=== PATIENT | male | born 1980 | race Caucasian/White ===

== ENCOUNTER 2016-03-23 15:46 | Emergency (ER) | payer OTHER ==
[2016-03-23 16:12] VITALS: BP 125/73
--- NOTE | 2016-03-23 16:17 | UC ---
Back Pain HPI - HPI Summary HPI Summary: The patient comes in today for: 1. Lower back pain: Onset: He has a history of lower back pain for "years" but it got worse over the last few days. Palliative/provocative: Movement makes it worse. He states "any" kind of movement makes it worse. He has problems with getting out of a chair. Quality: Sharp and dull. Sometimes it will "grab" him. Region: Lower back, right, left and midline. Severity: 8/10 sitting, but he appears more like 4/10 Time: Constant. Associated symptoms: Event: No known precipitating event. PCP: Dr. Peres. Bowel and bladder dysfunction: None. Fevers: None Unexpected weight loss: None. Recent Rx: Ibuprofen 800 mg "last couple days taken 6 or so." Tylenol: 500 mg/pill--"I think I only took two of those." Numbness/weakness: No numbness, but he complains of weakness that is not focal--"I just can't pick anything up with my back." * - History of Current Complaint Stated Complaint: BACK PAIN Time Seen by Provider: 03/23/16 15:51 Hx Obtained From: Patient - Allergies/Home Medications Allergies/Adverse Reactions: Allergies Allergy/AdvReac Type Severity Reaction Status Date / Time No Known Allergies Allergy Verified 03/09/16 12:15 Home Medications: Home Medications FLUoxetine CAP* [Prozac CAP*] 10 mg PO DAILY 03/23/16 [History Confirmed ] traZODone TAB* [Desyrel TAB*] 50 mg PO BEDTIME 03/23/16 [History Confirmed 03/23] PMH/Surg Hx/FS Hx/Imm Hx Previously Healthy: No - Headache, allergies, Insomnia, genital herpes Endocrine History Of: Denies: Diabetes, Thyroid Disease, Hyperthyroidism, Hypothyroidism, Dyslipidemia Cardiovascular History Of: Denies: Cardiac Disorders, Hypertension, Pacemaker/ICD, Myocardial Infarction , Congestive Heart Failure, Atrial Fibrillation, Deep Vein Thrombosis, Bleeding Disorders Respiratory History Of: Denies: COPD, Asthma, Bronchitis, Pneumonia, Pulmonary Embolism GI/ History Of: Reports: Gastroesophageal Reflux Denies: Ulcer, Gastrointestinal Bleed, Gall Bladder Disease, Kidney Stones, Diverticulitis, Renal Disease, Urosepsis Neurological History Of: Denies: TIA, CVA, Dementia, Seizures, Migraine Psychological History Of: Reports: Anxiety Denies: Depression, Bipolar Disorder, Schizophrenia, Post Traumatic Stress Disorder Cancer History Of: Denies: Lung Cancer, Colorectal Cancer, Breast Cancer, Prostate Cancer, Cervical Cancer Other History Of: Negative For: HIV, Hepatitis B, Hepatitis C, Anticoagulant Therapy - Surgical History Surgical History: Yes Surgery Procedure, Year, and Place: Cholecystectomy, 05/2014, [place] - Family History Known Family History: Positive: Hypertension Negative: Cardiac Disease, Diabetes - Social History Occupation: Employed Full-time Alcohol Use: None Substance Use Type: Marijuana Substance Use Comment - Amount & Last Used: occassionally Smoking Status (MU): Former Smoker Type: Cigarettes Have You Smoked in the Last Year: No When Did the Patient Quit Smoking/Using Tobacco: 10 years ago - Immunization History Most Recent Influenza Vaccination: Not the Season Review of Systems Constitutional: Negative Skin: Negative Eyes: Negative ENT: Negative Respiratory: Negative Cardiovascular: Negative Gastrointestinal: Negative Genitourinary: Negative Musculoskeletal: Arthralgia, Myalgia All Other Systems Reviewed And Are Negative: Yes Physical Exam Triage Information Reviewed: Yes Appearance: Well-Appearing, No Pain Distress - He gets up slow from the chair and gets on the exam table slowly, and guarded, but no marked grimacing., Well- Nourished Vital Signs: Initial Vital Signs Temp 99.0 F 03/23/16 15:59 Pulse 99 03/23/16 15:59 Resp 14 03/23/16 15:59 BP 125/73 03/23/16 15:59 Pulse Ox 97 03/23/16 15:59 Vital Signs Reviewed: Yes Eyes: Positive: Conjunctiva Clear. Negative: Discharge ENT: Positive: Hearing grossly normal. Negative: Pharyngeal erythema, Nasal congestion, Nasal drainage, TM bulging, TM dull, TM red, Tonsillar swelling, Tonsillar exudate Dental: Negative: Gross Decay/Caries @, Dental Fracture @ Neck: Positive: Supple, Nontender, No Lymphadenopathy. Negative: Nuchal Rigidity Respiratory: Positive: Chest non-tender, Lungs clear, No respiratory distress, No accessory muscle use. Negative: Crackles, Wheezing Cardiovascular: Positive: RRR, No Murmur Abdomen Description: Positive: Nontender, No Organomegaly, Soft. Negative: Distended, Guarding Musculoskeletal: Positive: Other: - Back: There is guarding and psychomotor slowing. There is no SLR bilaterally. There is 2+/2 x 2 for patellar DTR. He has marked tenderness to palpation of the right and left lumbar paraspinous musculature. There were focal areas of induration. Neurological: Positive: Alert, Muscle Tone Normal Psychological: Positive: Age Appropriate Behavior, Consolable Skin: Negative: rashes, breakdown Back Pain Course/Dx - Course Course Of Treatment: Patient got Ketorolac injection. - Differential Dx/Diagnosis Provider Diagnoses: Chronic lower back pain. Muscular lower back pain Discharge - Discharge Plan Condition: Stable Disposition: HOME Patient Education Materials: Low Back Strain (ED) Referrals: Nicole Alfaro MD [Primary Care Provider] - 1 Week (Please see your primary care provider in about a week to see how well you are doing. If you get worse, please be seen sooner.)
[2016-03-23] MEDS ORDERED: Ketorolac INJ* 60 MG/2 ML VIAL IM ONE (16:27)
== END 2016-03-23 17:02 | disposition home or self-care (01) ==
LOC: UCCORT 15:46
DX: M54.5 Low back pain (principal); F41.9 Anxiety disorder, unspecified; F12.90 Cannabis use, unspecified, uncomplicated; Z87.891 Personal history of nicotine dependence
CPT/HCPCS: 96372; 99212; G0463; J1885

== ENCOUNTER 2016-04-17 11:28 | Emergency (ER) | payer OTHER ==
[2016-04-17 12:42] VITALS: BP 124/82
--- NOTE | 2016-04-17 13:12 | UC ---
Back Pain HPI - HPI Summary HPI Summary: complaint of chronic back pain for [address] [facility] 1 month ago sees PCP- referring to pain clinic soon hx of lower back pain - herniated discs lower back progressively worse over the couple of months constant aching pain - sometimes sharp or dull pain is non radiating twisting turning bending and movement increase pain laying on his back or side reduces the pain currently taking not taking any medication for pain at this time hasn't been to PT for over 3 years ago denies fever denies weight loss denies incontinence tried baclofen without results - History of Current Complaint Chief Complaint: UCBackPain Stated Complaint: LOWER BACK PAIN Time Seen by Provider: 04/17/16 13:03 Character: Sharp, Dull, Aching - Allergies/Home Medications Allergies/Adverse Reactions: Allergies Allergy/AdvReac Type Severity Reaction Status Date / Time No Known Allergies Allergy Verified 03/09/16 12:15 Home Medications: Home Medications Gabapentin CAP(*) [Neurontin 100 mg CAP(*)] 100 mg PO BID 04/17/16 [History Confirmed 04/17/16] PMH/Surg Hx/FS Hx/Imm Hx Previously Healthy: Yes Endocrine History Of: Denies: Diabetes, Thyroid Disease, Hyperthyroidism, Hypothyroidism, Dyslipidemia Cardiovascular History Of: Denies: Cardiac Disorders, Hypertension, Pacemaker/ICD, Myocardial Infarction , Congestive Heart Failure, Atrial Fibrillation, Deep Vein Thrombosis, Bleeding Disorders Respiratory History Of: Denies: COPD, Asthma, Bronchitis, Pneumonia, Pulmonary Embolism GI/ History Of: Reports: Gastroesophageal Reflux Denies: Ulcer, Gastrointestinal Bleed, Gall Bladder Disease, Kidney Stones, Diverticulitis, Renal Disease, Urosepsis Neurological History Of: Denies: TIA, CVA, Dementia, Seizures, Migraine Psychological History Of: Reports: Anxiety Denies: Depression, Bipolar Disorder, Schizophrenia, Post Traumatic Stress Disorder Cancer History Of: Denies: Lung Cancer, Colorectal Cancer, Breast Cancer, Prostate Cancer, Cervical Cancer Other History Of: Negative For: HIV, Hepatitis B, Hepatitis C, Anticoagulant Therapy - Surgical History Surgical History: Yes Surgery Procedure, Year, and Place: Cholecystectomy, 05/2014, [place] - Family History Known Family History: Positive: Hypertension Negative: Cardiac Disease, Diabetes - Social History Alcohol Use: None Substance Use Type: None Substance Use Comment - Amount & Last Used: occassionally Smoking Status (MU): Former Smoker Type: Cigarettes Have You Smoked in the Last Year: No When Did the Patient Quit Smoking/Using Tobacco: 10 years ago - Immunization History Most Recent Influenza Vaccination: Not the Season Review of Systems Constitutional: Negative Skin: Negative Eyes: Negative ENT: Negative Respiratory: Negative Cardiovascular: Negative Gastrointestinal: Negative Genitourinary: Negative Motor: Negative Neurovascular: Negative Musculoskeletal: Other: - lower back pain Neurological: Negative Psychological: Negative All Other Systems Reviewed And Are Negative: Yes Physical Exam Triage Information Reviewed: Yes Appearance: No Pain Distress, Well-Nourished Vital Signs: Initial Vital Signs Temp 97.6 F 04/17/16 12:38 Pulse 73 04/17/16 12:38 Resp 16 04/17/16 12:38 BP 124/82 04/17/16 12:38 Pulse Ox 96 04/17/16 12:38 Vital Signs Reviewed: Yes Eyes: Positive: Conjunctiva Clear ENT: Positive: Pharynx normal, TMs normal Neck: Positive: No Lymphadenopathy Respiratory: Positive: Lungs clear, Normal breath sounds, No respiratory distress Cardiovascular: Positive: RRR, No Murmur, Pulses Normal Abdomen Description: Positive: Nontender, No Organomegaly, Soft Bowel Sounds: Positive: Present Musculoskeletal: Positive: Other: - lumbar paraspinal tenderness bilateral full ROM no bruising or edema slight tenderness with percusion on lower lumbar spine Neurological: Positive: Alert, Other: - negative SLR patellar reflexes are intact bilateral Back Pain Course/Dx - Course Course Of Treatment: exam completed. lower back pain is chronic- no red flags for inaging today. unclear of patient is following treatment plan with PCP. will treat acute pain with toradol, muscle relaxer and PT- followup with PCP - Differential Dx/Diagnosis Differential Diagnosis/HQI/PQRI: Herniated Disc, Strain, Sprain Provider Diagnoses: lower back pain Discharge - Discharge Plan Condition: Stable Disposition: HOME Prescriptions: Naproxen [Naproxen 500 MG TABS] 500 mg PO BID #20 tab Tizanidine HCl [Zanaflex] 4 mg PO TID #30 tab Patient Education Materials: Low Back Strain (ED) Referrals: Nicole Alfaro MD [Primary Care Provider] - Additional Instructions: Start tizanidine as directed. Do not drink alcohol or drive while taking tizanidine. Take naproxen for fever or pain. you must followup with your primary care provider for pain management. Increase fluids and rest. Please review your discharge instructions. If your symptoms do not improve please call your primary care provider or return to urgent care.
[2016-04-17] MEDS ORDERED: Ketorolac INJ* 60 MG/2 ML VIAL IM ONE (13:30)
== END 2016-04-17 14:10 | disposition home or self-care (01) ==
LOC: UCCORT 11:28
DX: M54.5 Low back pain (principal); F17.210 Nicotine dependence, cigarettes, uncomplicated
CPT/HCPCS: 96372; 99212; G0463; J1885

== ENCOUNTER 2016-05-31 18:20 | Emergency (ER) | payer OTHER | END 2016-05-31 20:57 | disposition left against medical advice (07) | LOC: UCCORT 18:20 | DX: M54.5 Low back pain (principal); Z53.21 Procedure and treatment not carried out due to patient leaving prior to being seen by health care provider ==

== ENCOUNTER 2016-06-01 17:56 | Emergency (ER) | payer OTHER | END 2016-06-01 20:18 | disposition left against medical advice (07) | LOC: UCCORT 17:56 | DX: M54.5 Low back pain (principal); Z53.21 Procedure and treatment not carried out due to patient leaving prior to being seen by health care provider ==

== ENCOUNTER 2016-06-04 14:52 | Emergency (ER) | payer OTHER ==
--- NOTE | 2016-06-04 15:38 | UC ---
Back Pain HPI - HPI Summary HPI Summary: complaint of lower back pain constant aching pain in lumbar spine non radiating pain movement, standing make the pain worse nothing is relieving the pain taking naproxen and tinizidine without much relief heating pad, warm bath without relief seen by Dr Sheffield last month- dx with L4-L5 disc protrusion, L5-S1 disc protrusion, osteoarthritis of spine , DDD given cortisone injection- 05/06/16 without relief referred to PT - started PT approx 2 weeks ago without relief referred back to PCP for pain management who stated they will not give narcotic pain medication- in process of getting PCP denies fever and incontinence - History of Current Complaint Chief Complaint: UCBackPain Stated Complaint: BACK PAIN Time Seen by Provider: 06/04/16 15:17 - Allergies/Home Medications Allergies/Adverse Reactions: Allergies Allergy/AdvReac Type Severity Reaction Status Date / Time No Known Allergies Allergy Verified 06/04/16 15:20 PMH/Surg Hx/FS Hx/Imm Hx Previously Healthy: No - chronic back pain- herniated discs, L4-L5, L5-S1 Endocrine History Of: Denies: Diabetes, Thyroid Disease, Hyperthyroidism, Hypothyroidism, Dyslipidemia Cardiovascular History Of: Denies: Cardiac Disorders, Hypertension, Pacemaker/ICD, Myocardial Infarction , Congestive Heart Failure, Atrial Fibrillation, Deep Vein Thrombosis, Bleeding Disorders Respiratory History Of: Denies: COPD, Asthma, Bronchitis, Pneumonia, Pulmonary Embolism GI/ History Of: Reports: Gastroesophageal Reflux Denies: Ulcer, Gastrointestinal Bleed, Gall Bladder Disease, Kidney Stones, Diverticulitis, Renal Disease, Urosepsis Neurological History Of: Denies: TIA, CVA, Dementia, Seizures, Migraine Psychological History Of: Reports: Anxiety Denies: Depression, Bipolar Disorder, Schizophrenia, Post Traumatic Stress Disorder Cancer History Of: Denies: Lung Cancer, Colorectal Cancer, Breast Cancer, Prostate Cancer, Cervical Cancer Other History Of: Negative For: HIV, Hepatitis B, Hepatitis C, Anticoagulant Therapy - Surgical History Surgical History: Yes Surgery Procedure, Year, and Place: 05/2014 Cholecystectomy - Family History Known Family History: Positive: Hypertension Negative: Cardiac Disease, Diabetes - Social History Occupation: Unemployed Lives: With Family Alcohol Use: None Substance Use Type: None Substance Use Comment - Amount & Last Used: occassionally Smoking Status (MU): Former Smoker Type: Cigarettes Have You Smoked in the Last Year: No When Did the Patient Quit Smoking/Using Tobacco: 10 years ago - Immunization History Most Recent Influenza Vaccination: Not the 2014/2015 Season Review of Systems Constitutional: Negative Skin: Negative Eyes: Negative ENT: Negative Respiratory: Negative Gastrointestinal: Negative Genitourinary: Negative Motor: Negative Neurovascular: Negative Musculoskeletal: Other: - lower back pain Neurological: Negative Psychological: Negative All Other Systems Reviewed And Are Negative: Yes Physical Exam Triage Information Reviewed: Yes Appearance: No Pain Distress, Well-Nourished Vital Signs: Initial Vital Signs Temp 98 F 06/04/16 15:15 Pulse 84 06/04/16 15:15 Resp 16 06/04/16 15:15 BP 136/74 06/04/16 15:15 Pulse Ox 96 06/04/16 15:15 Vital Signs Reviewed: Yes Eyes: Positive: Conjunctiva Clear ENT: Positive: Pharynx normal, TMs normal Neck: Positive: Supple, No Lymphadenopathy Respiratory: Positive: Lungs clear, Normal breath sounds, No respiratory distress, No accessory muscle use Cardiovascular: Positive: RRR, No Murmur, Pulses Normal Abdomen Description: Positive: Nontender, Soft Bowel Sounds: Positive: Present Musculoskeletal: Positive: No Edema, Other: - Spine have no noted deformities or signs of inflammation. Curvature of thoracic, and lumbar spine are within normal limits. Bony features of shoulders and hips are of equal height bilaterally. Posture is upright, and gait is smooth and normal. Spinous processes of T1-L5 palpable, midline, and non-tender; No step-offs. left lumbar paraspinal tenderness. Flexion, extension, and rotation of spinal column is minimal due to pain. Patient cannot flex forward and reach toes d/t pain. Lateral bending causes discomfort. Neurological: Positive: Alert, Other: - SLR negative, patellar reflexes intact Psychological Exam: Normal Skin Exam: Normal Back Pain Course/Dx - Course Course Of Treatment: exam completed. pt with chronic pain issues d/t herniated discs at L4-L5, L5-S1, osteoarthritis, and DDD. discussed at length that pain management needs to be done by PCP and possible referrral to pain management. discussed importance of physical therapy which is the treatment of choice for herniated discs and patient states understanding. copy of [facility] chronic pain guidlelines given to patient. will give contact information for PCP in [facility] for him to contact- in the meantime he must continue PT, NSAIDS and muscle relaxer. - Differential Dx/Diagnosis Differential Diagnosis/HQI/PQRI: Herniated Disc Provider Diagnoses: chronic lower back pain Discharge - Discharge Plan Condition: Stable Disposition: HOME Patient Education Materials: Chronic Back Pain (ED) Referrals: [facility] PHYSICIAN REFERRAL [Outside] Additional Instructions: Start tizanidine as directed as directed. Do not drink alcohol or drive while taking tizanidine Please call physical therapy for treatment.You can request a TENS machine for your back pain. please followup with Dr Sheffield regarding your chronic pain Take ibuprofen for pain. Increase fluids and rest. Please review your discharge instructions. Please contact local primary care offices to set up primary care provider. If your symptoms do not improve please call your primary care provider or return to urgent care.
[2016-06-04] MEDS ORDERED: Ketorolac INJ* 60 MG/2 ML VIAL IM ONE (15:47)
[2016-06-04 16:16] VITALS: BP 136/74
== END 2016-06-04 16:35 | disposition home or self-care (01) ==
LOC: UCCORT 14:52
DX: M54.5 Low back pain (principal); M51.26 Other intervertebral disc displacement, lumbar region; Z90.49 Acquired absence of other specified parts of digestive tract; Z87.891 Personal history of nicotine dependence
CPT/HCPCS: 96372; 99212; G0463; J1885

== ENCOUNTER 2016-06-13 13:39 | Emergency (ER) | payer OTHER ==
[2016-06-13 14:11] VITALS: BP 115/76
--- NOTE | 2016-06-13 14:36 | UC ---
Ear Complaint HPI - History of Current Complaint Chief Complaint: UCEar Stated Complaint: HEADACHE/EAR PAIN Time Seen by Provider: 06/13/16 14:20 - Allergies/Home Medications Allergies/Adverse Reactions: Allergies Allergy/AdvReac Type Severity Reaction Status Date / Time No Known Allergies Allergy Verified 06/13/16 14:05 Home Medications: Home Medications Escitalopram (NF) [Lexapro (NF)] 5 mg PO DAILY 06/13/16 [History Confirmed 06/13] Ibuprofen TAB* [Motrin TAB* 800 MG] 800 mg PO TID PRN 06/13/16 [History Confirmed 06/13/16] PMH/Surg Hx/FS Hx/Imm Hx Endocrine History Of: Denies: Diabetes, Thyroid Disease, Hyperthyroidism, Hypothyroidism, Dyslipidemia Cardiovascular History Of: Denies: Cardiac Disorders, Hypertension, Pacemaker/ICD, Myocardial Infarction , Congestive Heart Failure, Atrial Fibrillation, Deep Vein Thrombosis, Bleeding Disorders Respiratory History Of: Denies: COPD, Asthma, Bronchitis, Pneumonia, Pulmonary Embolism GI/ History Of: Reports: Gastroesophageal Reflux Denies: Ulcer, Gastrointestinal Bleed, Gall Bladder Disease, Kidney Stones, Diverticulitis, Renal Disease, Urosepsis Neurological History Of: Denies: TIA, CVA, Dementia, Seizures, Migraine Psychological History Of: Reports: Anxiety Denies: Depression, Bipolar Disorder, Schizophrenia, Post Traumatic Stress Disorder Cancer History Of: Denies: Lung Cancer, Colorectal Cancer, Breast Cancer, Prostate Cancer, Cervical Cancer Other History Of: Negative For: HIV, Hepatitis B, Hepatitis C, Anticoagulant Therapy - Surgical History Surgical History: Yes Surgery Procedure, Year, and Place: 05/2014 Cholecystectomy - Family History Known Family History: Positive: Hypertension Negative: Cardiac Disease, Diabetes - Social History Alcohol Use: None Substance Use Type: None Substance Use Comment - Amount & Last Used: occassionally Smoking Status (MU): Former Smoker Type: Cigarettes Have You Smoked in the Last Year: No When Did the Patient Quit Smoking/Using Tobacco: 10 years ago - Immunization History Most Recent Influenza Vaccination: Not the Season Physical Exam Vital Signs: Initial Vital Signs Temp 97.6 F 06/13/16 14:08 Pulse 74 06/13/16 14:08 Resp 20 06/13/16 14:08 BP 115/76 06/13/16 14:08 Pulse Ox 97 06/13/16 14:08 Ear Complaint Course/Dx - Course Course Of Treatment: hx obtained, exam performed, medications reviewed, treated for right otitis media - Differential Dx/Diagnosis Differential Diagnosis/HQI/PQRI: Cellulitis, Cerumen Impaction, Otitis Externa, Otitis Media Provider Diagnoses: otitis media right ear. sinus congestion Discharge - Discharge Plan Condition: Stable Disposition: HOME Prescriptions: Amoxicillin/Clavulanate TAB* [Augmentin TAB 875*] 875 mg PO BID #14 tab predniSONE TAB* [Deltasone TAB*] 40 mg PO DAILY #10 tab Additional Instructions: Take the medication as prescribed. Increase fluid intake and get plenty of rest. Tylenol and ibuprofen for pain relief.
== END 2016-06-13 14:40 | disposition home or self-care (01) ==
LOC: UCCORT 13:39
DX: H66.91 Otitis media, unspecified, right ear (principal); R09.81 Nasal congestion; K21.9 Gastro-esophageal reflux disease without esophagitis; F41.9 Anxiety disorder, unspecified; Z90.49 Acquired absence of other specified parts of digestive tract; Z87.891 Personal history of nicotine dependence
CPT/HCPCS: 99212; G0463

== ENCOUNTER 2016-07-06 18:16 | Emergency (ER) | payer MEDICAID ==
--- NOTE | 2016-07-06 20:33 | UC ---
Back Pain HPI - HPI Summary HPI Summary: has had back pain for years Dr. Alfaro does nothing for me" Dr. Sheffield does steroid injections that do not help" My MRI shows that I have slipped discs" - History of Current Complaint Chief Complaint: UCBackPain Stated Complaint: BACK PAIN Time Seen by Provider: 07/06/16 20:19 Hx Obtained From: Patient Onset/Duration: Gradual Onset - no specific injury has been going on for years. and flares up peridiocally Timing: Intermittent, Lasting Days Severity Initially: Moderate Severity Currently: Moderate Pain Intensity: 8 Pain Scale Used: 0-10 Numeric Back Pain: Is Discrete @ - accross his low back Character: Aching, Spasmodic, Stiffness Aggravating: Movement, Lifting Alleviating: Rest Associated Signs And Symptoms: Positive: Negative Related History: Previous Back Injury - Allergies/Home Medications Allergies/Adverse Reactions: Allergies Allergy/AdvReac Type Severity Reaction Status Date / Time No Known Allergies Allergy Verified 06/13/16 14:05 PMH/Surg Hx/FS Hx/Imm Hx Endocrine History Of: Denies: Diabetes, Thyroid Disease, Hyperthyroidism, Hypothyroidism, Dyslipidemia Cardiovascular History Of: Denies: Cardiac Disorders, Hypertension, Pacemaker/ICD, Myocardial Infarction , Congestive Heart Failure, Atrial Fibrillation, Deep Vein Thrombosis, Bleeding Disorders Respiratory History Of: Denies: COPD, Asthma, Bronchitis, Pneumonia, Pulmonary Embolism GI/ History Of: Reports: Gastroesophageal Reflux Denies: Ulcer, Gastrointestinal Bleed, Gall Bladder Disease, Kidney Stones, Diverticulitis, Renal Disease, Urosepsis Neurological History Of: Denies: TIA, CVA, Dementia, Seizures, Migraine Psychological History Of: Reports: Anxiety Denies: Depression, Bipolar Disorder, Schizophrenia, Post Traumatic Stress Disorder Cancer History Of: Denies: Lung Cancer, Colorectal Cancer, Breast Cancer, Prostate Cancer, Cervical Cancer Other History Of: Negative For: HIV, Hepatitis B, Hepatitis C, Anticoagulant Therapy - Surgical History Surgical History: Yes Surgery Procedure, Year, and Place: 05/2014 Cholecystectomy - Family History Known Family History: Positive: Hypertension Negative: Cardiac Disease, Diabetes - Social History 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 Lives: With Family Alcohol Use: Rare Substance Use Type: None Substance Use Comment - Amount & Last Used: denies Smoking Status (MU): Former Smoker Type: Cigarettes Have You Smoked in the Last Year: No When Did the Patient Quit Smoking/Using Tobacco: 10 years ago - Immunization History Most Recent Influenza Vaccination: none Review of Systems Constitutional: Negative Skin: Negative Eyes: Negative ENT: Negative Respiratory: Negative Cardiovascular: Negative Gastrointestinal: Negative Genitourinary: Negative Motor: Negative Neurovascular: Negative Musculoskeletal: Arthralgia - lower back, Myalgia - lower back Neurological: Negative Psychological: Negative All Other Systems Reviewed And Are Negative: Yes Physical Exam Triage Information Reviewed: Yes Appearance: Well-Appearing, Well-Nourished, Pain Distress Vital Signs: Initial Vital Signs Temp 99.3 F 07/06/16 20:21 Pulse 99 07/06/16 20:21 Resp 17 07/06/16 20:21 BP 110/77 07/06/16 20:21 Pulse Ox 95 07/06/16 20:21 Vital Signs Reviewed: Yes Eye Exam: Normal Eyes: Positive: Conjunctiva Clear ENT Exam: Normal ENT: Positive: Normal ENT inspection, Hearing grossly normal. Negative: Nasal congestion, Nasal drainage, Trismus, Muffled/hoarse voice Neck exam: Normal Neck: Positive: Supple, Nontender Respiratory Exam: Normal Respiratory: Positive: Chest non-tender, Normal breath sounds, No respiratory distress, No accessory muscle use Cardiovascular Exam: Normal Cardiovascular: Positive: No Murmur, Pulses Normal, Brisk Capillary Refill Musculoskeletal Exam: Normal Musculoskeletal: Positive: Strength Intact, ROM Intact, No Edema, Other: - slow moving, gait steady Neurological Exam: Normal Neurological: Positive: Alert, Muscle Tone Normal Psychological Exam: Normal Skin Exam: Normal Back Pain Course/Dx - Course Course Of Treatment: toradol shot, then po toradal and tizanadine, follow with Dr. Brooks to modify chronic treatment planning - Differential Dx/Diagnosis Differential Diagnosis/HQI/PQRI: Arthritis, Herniated Disc, Strain, Sprain Provider Diagnoses: Muscle strain lower back acute on chronic pain Discharge - Discharge Plan Condition: Stable Disposition: HOME Prescriptions: Ketorolac TAB (NF) [Toradol TAB (NF)] 10 mg PO TID #15 tab Tizanidine HCl 2 - 4 mg PO Q8H PRN #21 cap PRN Reason: muscle spasm Patient Education Materials: Chronic Back Pain (ED), Core Strengthening Exercises (GEN), Lower Back Exercises (ED) Forms: *Work Release Referrals: Nicole Alfaro MD [Medical Doctor] - 3 Days
[2016-07-06] MEDS ORDERED: Ketorolac INJ* 60 MG/2 ML VIAL IM ONE (20:34)
[2016-07-06 20:47] VITALS: BP 110/77
== END 2016-07-06 21:01 | disposition home or self-care (01) ==
LOC: UCCORT 18:16
DX: S39.012A Strain of muscle, fascia and tendon of lower back, initial encounter (principal); X58.XXXA Exposure to other specified factors, initial encounter; Y93.9 Activity, unspecified; Y92.9 Unspecified place or not applicable; K21.9 Gastro-esophageal reflux disease without esophagitis; F41.9 Anxiety disorder, unspecified; Z90.49 Acquired absence of other specified parts of digestive tract; Z87.891 Personal history of nicotine dependence
CPT/HCPCS: 96372; 99212; G0463; J1885

== ENCOUNTER 2016-08-07 16:22 | Emergency (ER) | payer MEDICAID ==
[2016-08-07 17:01] VITALS: BP 122/76
--- NOTE | 2016-08-07 17:27 | UC ---
Back Pain HPI - HPI Summary HPI Summary: The patient comes in today for: 1. Lower back pain: Onset: "I've had this ever since I was a kid." More recently he states that it has been getting worse over the past week. There is more pain. Pain is in the "tailbone" area. Palliative/provocative: Medications help it. He states that ibuprofen has not helped. Toradol, Tramadol, Naproxen, Hydrocodone, ibuprofen, Tylenol had all been tried. He states that hydrocodone helps. He states that tizanidine and Toradol and/or Tramadol Quality: Sharp and dull at times. Region: Lower right and left Severity:8/10 at this time. Time: Constant. Associated symptoms: Injury: None. Bowel/bladder incontinence: None. Fevers/infections: None. Cancer/weight loss: None. Laying on the left side helps. * - History of Current Complaint Chief Complaint: UCBackPain Stated Complaint: LOW BACK PAIN Time Seen by Provider: 08/07/16 17:22 Hx Obtained From: Patient, Family/[employer] - Allergies/Home Medications Allergies/Adverse Reactions: Allergies Allergy/AdvReac Type Severity Reaction Status Date / Time No Known Allergies Allergy Verified 08/07/16 16:51 PMH/Surg Hx/FS Hx/Imm Hx Previously Healthy: No - Anxiety, herpes simplex--all other problems listed below: (-) Other History Of: Negative For: HIV, Hepatitis B, Hepatitis C, Anticoagulant Therapy - Surgical History Surgical History: Yes Surgery Procedure, Year, and Place: 05/2014 Cholecystectomy - Family History Known Family History: Positive: Hypertension Negative: Cardiac Disease, Diabetes - Social History Occupation: Employed Full-time Alcohol Use: None Substance Use Type: None Substance Use Comment - Amount & Last Used: occassionally Smoking Status (MU): Former Smoker Type: Cigarettes Have You Smoked in the Last Year: No When Did the Patient Quit Smoking/Using Tobacco: 10 years ago - Immunization History Most Recent Influenza Vaccination: NONE Most Recent Tetanus Shot: UTD Most Recent Pneumonia Vaccination: N/A Review of Systems Constitutional: Negative Skin: Negative Eyes: Negative ENT: Negative Respiratory: Negative Cardiovascular: Negative Gastrointestinal: Negative Genitourinary: Negative Musculoskeletal: Arthralgia All Other Systems Reviewed And Are Negative: Yes Physical Exam Triage Information Reviewed: Yes Appearance: Well-Appearing, No Pain Distress - He has psychomotor slowing getting out of the chair. He has some limitation of movement with forward flexion and lateral flexion., Well-Nourished Vital Signs: Initial Vital Signs Temp 99 F 08/07/16 16:53 Pulse 79 08/07/16 16:53 Resp 16 08/07/16 16:53 BP 122/76 08/07/16 16:53 Pulse Ox 96 08/07/16 16:53 Vital Signs Reviewed: Yes Eyes: Positive: Conjunctiva Clear. Negative: Discharge ENT: Positive: Hearing grossly normal. Negative: Pharyngeal erythema, Nasal congestion, Nasal drainage, TM bulging, TM dull, TM red, Tonsillar swelling, Tonsillar exudate Dental: Negative: Gross Decay/Caries @, Dental Fracture @ Neck: Positive: Supple, Nontender, No Lymphadenopathy. Negative: Nuchal Rigidity Respiratory: Positive: Lungs clear, No respiratory distress, No accessory muscle use. Negative: Crackles, Wheezing Cardiovascular: Positive: RRR, No Murmur Abdomen Description: Positive: Nontender, No Organomegaly, Soft. Negative: Distended, Guarding Musculoskeletal: Positive: Strength Intact, Other: - Back: He has some guarding. There is no SLR x 2 and the DTR are 2+2 x 2. He has tenderness Neurological: Positive: Alert, Muscle Tone Normal Psychological: Positive: Normal Response To Family, Age Appropriate Behavior, Consolable Skin: Negative: rashes, breakdown Diagnostics - Radiology No standard instances Radiology Interpretation Completed By: Radiologist - April 25, 2016 MRI: IMPRESSION: 1. MILD DEGENERATIVE DISC DISEASE AND OSTEOARTHRITIS ALONG THE LOWER LUMBAR SPINE. 2. THERE IS A SMALL LEFT-SIDED DISC PROTRUSION AT L4-L5 WITH A CENTRAL DISC PROTRUSION AT L5-S1. 3. THERE IS NEURAL FORAMINAL NARROWING DESCRIBED ABOVE. THERE IS NO SIGNIFICANT CENTRAL CANAL STENOSIS. Back Pain Course/Dx - Course Course Of Treatment: Patient was told from my review of his record that his chronic back pain will probably not be well managed with episodic care through the urgent care centers. He is encouraged to get a PCP. We discussed medical management and stated that we don't give narcotic medications for chronic pain conditions here. He agreed to get Prednisone burst and tizanidine. - Differential Dx/Diagnosis Differential Diagnosis/HQI/PQRI: Strain, Sprain Provider Diagnoses: Low back pain. IMPRESSION: 1. MILD DEGENERATIVE DISC DISEASE AND OSTEOARTHRITIS ALONG THE LOWER LUMBAR SPINE. 2. THERE IS A SMALL LEFT-SIDED DISC PROTRUSION AT L4-L5 WITH A CENTRAL DISC PROTRUSION AT. L5-S1. 3. THERE IS NEURAL FORAMINAL NARROWING DESCRIBED ABOVE. THERE IS NO SIGNIFICANT. CENTRAL CANAL STENOSIS. Discharge - Discharge Plan Condition: Stable Disposition: HOME Patient Education Materials: Chronic Back Pain (ED) Forms: *Work Release Referrals: No Primary Care Phys,NOPCP [Primary Care Provider] - (Please follow up with your primary care provider for further evaluation and treatment. Another option is to see Dr. Linda--information provided.)
[2016-08-07] MEDS ORDERED: Ketorolac INJ* 60 MG/2 ML VIAL IM ONE (17:46)
== END 2016-08-07 18:47 | disposition home or self-care (01) ==
LOC: UCCORT 16:22
DX: Z87.891 Personal history of nicotine dependence (principal); M51.36 Other intervertebral disc degeneration, lumbar region; M47.896 Other spondylosis, lumbar region; M51.26 Other intervertebral disc displacement, lumbar region; M99.53 Intervertebral disc stenosis of neural canal of lumbar region
CPT/HCPCS: 96372; 99212; G0463; J1885

== ENCOUNTER 2016-09-15 13:57 | Emergency (ER) | payer OTHER ==
[2016-09-15 14:07] VITALS: BP 124/78
[2016-09-15] MEDS ORDERED: Ketorolac INJ* 30 MG/ML 1 ML VIAL IM ONE (14:46)
--- NOTE | 2016-09-15 14:54 | UC ---
Back Pain HPI - HPI Summary HPI Summary: Patient was moving heavy furniture and "tweaked his back" cant stand up straight , pain remains located on low back, no radiating pain - History of Current Complaint Chief Complaint: UCBackPain Stated Complaint: LOW BACK PAIN Time Seen by Provider: 09/15/16 14:33 Hx Obtained From: Patient Onset/Duration: Sudden Onset, Lasting Days - 1 Timing: Lasting Days Severity Initially: Severe Severity Currently: Severe Back Pain: Is Discrete @ - lumbar Character: Dull, Aching, Spasmodic Aggravating: Movement, Lifting, Bending, Walking Alleviating: Rest, Position - sitting - Allergies/Home Medications Allergies/Adverse Reactions: Allergies Allergy/AdvReac Type Severity Reaction Status Date / Time No Known Allergies Allergy Verified 09/15/16 14:01 Home Medications: Home Medications BuPROPion XL* [Bupropion XL*] 300 mg DAILY 09/15/16 [History Confirmed 09/15/16] PMH/Surg Hx/FS Hx/Imm Hx Previously Healthy: Yes Other History Of: Negative For: HIV, Hepatitis B, Hepatitis C, Anticoagulant Therapy - Surgical History Surgical History: Yes Surgery Procedure, Year, and Place: 05/2014 Cholecystectomy - Family History Known Family History: Positive: Hypertension Negative: Cardiac Disease, Diabetes - Social History Alcohol Use: None Substance Use Type: None Substance Use Comment - Amount & Last Used: occassionally Smoking Status (MU): Former Smoker Type: Cigarettes Have You Smoked in the Last Year: No When Did the Patient Quit Smoking/Using Tobacco: 10 years ago - Immunization History Most Recent Influenza Vaccination: NONE 2015 Most Recent Tetanus Shot: UTD Most Recent Pneumonia Vaccination: N/A Review of Systems Constitutional: Negative Skin: Negative Eyes: Negative ENT: Negative Respiratory: Negative Cardiovascular: Negative Gastrointestinal: Negative Genitourinary: Negative Motor: Negative Neurovascular: Negative Musculoskeletal: Arthralgia, Decreased ROM, Myalgia Neurological: Negative Psychological: Negative All Other Systems Reviewed And Are Negative: Yes Physical Exam Triage Information Reviewed: Yes Appearance: Well-Appearing, Well-Nourished, Pain Distress Vital Signs: Initial Vital Signs Temp 97.4 F 09/15/16 14:04 Pulse 89 09/15/16 14:04 Resp 18 09/15/16 14:04 BP 124/78 09/15/16 14:04 Pulse Ox 96 09/15/16 14:04 Vital Signs Reviewed: Yes Eye Exam: Normal ENT Exam: Normal Dental Exam: Normal Neck exam: Normal Respiratory Exam: Normal Respiratory: Positive: Chest non-tender, Lungs clear, Normal breath sounds Cardiovascular Exam: Normal Cardiovascular: Positive: RRR, No Murmur, Pulses Normal Abdominal Exam: Normal Abdomen Description: Positive: Nontender, No Organomegaly, Soft Bowel Sounds: Positive: Present Musculoskeletal Exam: Normal Musculoskeletal: Positive: Strength Intact, No Edema, ROM Limited @ - lumbar ext and rotation limited due to pain, no swelling, spams of paraspinal muscles noted Neurological Exam: Normal Neurological: Positive: Alert, Muscle Tone Normal Psychological Exam: Normal Skin Exam: Normal Back Pain Course/Dx - Course Course Of Treatment: hx obtained, exam performed ,meds reviewed, treated with toradol and flexeril prescribed. educated on stretches - Differential Dx/Diagnosis Differential Diagnosis/HQI/PQRI: Fracture, Herniated Disc, Strain, Sprain Provider Diagnoses: low back pain. musle strain Discharge - Discharge Plan Condition: Stable Disposition: HOME Prescriptions: Cyclobenzaprine TAB* [Flexeril 10 MG TAB*] 10 mg PO BID PRN #6 tab PRN Reason: Spasms Patient Education Materials: Back Pain (ED), Lower Back Exercises (ED) Forms: *Work Release Referrals: No Primary Care Phys,NOPCP [Primary Care Provider] - Additional Instructions: 1. You were given a shot of toradol due not start any ibuprofen or naproxen until 11 oclock tonight. 2. Ibuprofen 600 mg every 6 hours starting at 11 pm. 3. use the flexeril to relieve the spasm 4. I recommend the followin you tube channel for hip flexer stretches. Judson Cline, micah psoas/ hip flexor stretches.
== END 2016-09-15 15:17 | disposition home or self-care (01) ==
LOC: UCCORT 13:57
DX: S39.012A Strain of muscle, fascia and tendon of lower back, initial encounter (principal); X50.9XXA Other and unspecified overexertion or strenuous movements or postures, initial encounter; Y92.9 Unspecified place or not applicable; M54.5 Low back pain; Z87.891 Personal history of nicotine dependence
CPT/HCPCS: 96372; 99212; G0463; J1885

== ENCOUNTER 2016-12-03 12:43 | Emergency (ER) | payer OTHER ==
[2016-12-03 13:13] VITALS: BP 117/78
--- NOTE | 2016-12-03 13:33 | UC ---
Respiratory Complaint HPI - HPI Summary HPI Summary: patient has had 3 day of increased sinus pain and chest congestion, coughing and wheezing - History of Current Complaint Hx Obtained From: Patient Onset/Duration: Sudden Onset, Lasting Days Timing: Constant Severity Initially: Moderate Severity Currently: Moderate Character: Cough: Nonproductive Aggravating Factors: Exertion, Deep Breaths, Recumbent Position Alleviating Factors: Nothing Associated Signs And Symptoms: Positive: Wheezing, URI <Radha Maxwell - Last Filed: 12/03/16 13:36> <Melissa Verma - Last Filed: 12/03/16 13:53> - History of Current Complaint Chief Complaint: UCRespiratory Stated Complaint: CONGESTION,ACHY Time Seen by Provider: 12/03/16 13:23 - Allergies/Home Medications Allergies/Adverse Reactions: Allergies Allergy/AdvReac Type Severity Reaction Status Date / Time No Known Allergies Allergy Verified 12/03/16 13:13 PMH/Surg Hx/FS Hx/Imm Hx Previously Healthy: Yes Other History Of: Negative For: HIV, Hepatitis B, Hepatitis C, Anticoagulant Therapy - Surgical History Surgical History: Yes Surgery Procedure, Year, and Place: 05/2014 Cholecystectomy - Family History Known Family History: Positive: Hypertension Negative: Cardiac Disease, Diabetes - Social History Alcohol Use: None Substance Use Type: None Substance Use Comment - Amount & Last Used: occassionally Smoking Status (MU): Former Smoker Type: Cigarettes Have You Smoked in the Last Year: No When Did the Patient Quit Smoking/Using Tobacco: 10 years ago - Immunization History Most Recent Influenza Vaccination: NONE 2015 Most Recent Tetanus Shot: UTD Most Recent Pneumonia Vaccination: N/A <Radha Maxwell - Last Filed: 12/03/16 13:36> Review of Systems Constitutional: Negative Skin: Negative Eyes: Negative ENT: Sore Throat, Ear Ache, Nasal Discharge, Sinus Congestion, Sinus Pain/ Tenderness Respiratory: Shortness Of Breath, Cough Cardiovascular: Negative Gastrointestinal: Negative Genitourinary: Negative Motor: Negative Neurovascular: Negative Musculoskeletal: Negative Neurological: Headache Psychological: Negative Is Patient Immunocompromised?: No All Other Systems Reviewed And Are Negative: Yes <Radha Maxwell - Last Filed: 12/03/16 13:36> Physical Exam Triage Information Reviewed: Yes Appearance: Well-Nourished, Ill-Appearing, Pain Distress Vital Signs: Initial Vital Signs Temp 97.8 F 12/03/16 13:07 Pulse 69 12/03/16 13:07 Resp 18 12/03/16 13:07 BP 117/78 12/03/16 13:07 Pulse Ox 99 12/03/16 13:07 Vital Signs Reviewed: Yes Eye Exam: Normal ENT: Positive: Pharyngeal erythema, Nasal congestion, Nasal drainage Dental Exam: Normal Neck exam: Normal Respiratory Exam: Normal Respiratory: Positive: No respiratory distress, No accessory muscle use, Wheezing, Expiration, Inspiration Cardiovascular Exam: Normal Cardiovascular: Positive: RRR, No Murmur, Pulses Normal Abdominal Exam: Normal Abdomen Description: Positive: Nontender, No Organomegaly, Soft Bowel Sounds: Positive: Present Musculoskeletal Exam: Normal Musculoskeletal: Positive: Strength Intact, ROM Intact, No Edema Neurological Exam: Normal Neurological: Positive: Alert, Muscle Tone Normal Psychological Exam: Normal Skin Exam: Normal <Radha Maxwell - Last Filed: 12/03/16 13:36> Vital Signs: Initial Vital Signs Temp 97.8 F 12/03/16 13:07 Pulse 69 12/03/16 13:07 Resp 18 12/03/16 13:07 BP 117/78 12/03/16 13:07 Pulse Ox 99 12/03/16 13:07 <Melissa Verma - Last Filed: 12/03/16 13:53> UC Diagnostic Evaluation - Laboratory O2 Sat by Pulse Oximetry: 99 <Radha Maxwell - Last Filed: 12/03/16 13:36> Respiratory Course/Dx - Course Course Of Treatment: hx obtained, exam performed ,meds reviewed, treated for sinus congestion and wheezing and cough - Differential Dx/Diagnosis Differential Diagnosis/HQI/PQRI: Asthma, Bronchitis, Laryngitis, Sinusitis Provider Diagnoses: rhinosinusitis. wheezing. cough <Radha Maxwell - Last Filed: 12/03/16 13:36> Discharge <Radha Maxwell - Last Filed: 12/03/16 13:36> <Melissa Verma - Last Filed: 12/03/16 13:53> - Discharge Plan Condition: Stable Disposition: HOME Prescriptions: guaiFENesin/CODIEN 100MG-10MG* [Robitussin AC 100Mg-10Mg*] 5 ml PO BEDTIME PRN # 50 ml MDD 5 ml PRN Reason: Cough predniSONE TAB* [Deltasone TAB*] 40 mg PO DAILY #14 tab Patient Education Materials: Rhinosinusitis (ED) Forms: *Work Release Referrals: No Primary Care Phys,NOPCP [Primary Care Provider] - Additional Instructions: 1. take the medications as prescribed. 2. Increase your fluid intake and get plenty of rest 3. Follow up with any worsening symtpoms Attestation Statement User Type: Provider - I was available for consult. This patient was seen by the JO-ANN. The patient was not presented to, seen by, or examined by me. -Fred <Melissa Verma - Last Filed: 12/03/16 13:53>
== END 2016-12-03 13:48 | disposition home or self-care (01) ==
LOC: UCCORT 12:43
DX: J32.9 Chronic sinusitis, unspecified (principal); R06.2 Wheezing; R05 Cough; Z87.891 Personal history of nicotine dependence
CPT/HCPCS: 99211; G0463

== ENCOUNTER 2017-01-24 16:23 | Emergency (ER) | payer SELFPAY ==
[2017-01-24 17:25] VITALS: BP 107/69
--- NOTE | 2017-01-24 17:44 | UC ---
Respiratory Complaint HPI - HPI Summary HPI Summary: 36 year old male with cough symptoms. BEGAN ONE WEEK AGO WITH SORE THROAT. LAST FEW DAYS CHEST CONGESTION, COUGH- NOT PRODUCTIVE. NO CHILLS OR FEVER. C/O HEAD AND BODY ACHES. NO N/V/D. Cough worsening and now on day 7 or 8 and he was concerned. No CP, palp but (+) SOB. No insurance. [ End ] - History of Current Complaint Chief Complaint: UCRespiratory Stated Complaint: CHEST CONGESTION/COUGH Time Seen by Provider: 01/24/17 17:40 Hx Obtained From: Patient Onset/Duration: Gradual Onset Timing: Constant Severity Initially: Mild Severity Currently: Moderate Character: Cough: Nonproductive Aggravating Factors: Allergens, Exertion Alleviating Factors: Nothing Associated Signs And Symptoms: Positive: Chills, Nasal Congestion - Allergies/Home Medications Allergies/Adverse Reactions: Allergies Allergy/AdvReac Type Severity Reaction Status Date / Time No Known Allergies Allergy Verified 01/24/17 17:17 PMH/Surg Hx/FS Hx/Imm Hx Previously Healthy: Yes Other History Of: Negative For: HIV, Hepatitis B, Hepatitis C, Anticoagulant Therapy - Surgical History Surgical History: Yes Surgery Procedure, Year, and Place: 05/2014 Cholecystectomy - Family History Known Family History: Positive: Hypertension Negative: Cardiac Disease, Diabetes - Social History Occupation: Employed Full-time - [place] Lives: With Family - daughter Alcohol Use: None Substance Use Type: None Substance Use Comment - Amount & Last Used: occassionally Smoking Status (MU): Former Smoker Type: Cigarettes Have You Smoked in the Last Year: No When Did the Patient Quit Smoking/Using Tobacco: 10 years ago - Immunization History Most Recent Influenza Vaccination: NOT IN 2016 Most Recent Tetanus Shot: UTD Most Recent Pneumonia Vaccination: N/A Review of Systems Constitutional: Fatigue ENT: Ear Ache, Nasal Discharge, Sinus Congestion, Sinus Pain/Tenderness Respiratory: Shortness Of Breath, Cough Is Patient Immunocompromised?: No All Other Systems Reviewed And Are Negative: Yes Physical Exam Triage Information Reviewed: Yes Appearance: Well-Appearing, No Pain Distress, Well-Nourished Vital Signs: Initial Vital Signs Temp 97.6 F 01/24/17 17:19 Pulse 95 01/24/17 17:19 Resp 20 01/24/17 17:19 BP 107/69 01/24/17 17:19 Pulse Ox 96 01/24/17 17:19 Vital Signs Reviewed: Yes Eye Exam: Normal ENT Exam: Normal Dental Exam: Normal Neck exam: Normal Neck: Positive: 1 Respiratory Exam: Normal Respiratory: Positive: No respiratory distress, No accessory muscle use, Decreased breath sounds - RLL and LLL, Wheezing - RLL and LLL Cardiovascular Exam: Normal Musculoskeletal Exam: Normal Neurological Exam: Normal Psychological Exam: Normal Skin Exam: Normal UC Diagnostic Evaluation - Laboratory O2 Sat by Pulse Oximetry: 96 Respiratory Course/Dx - Course Course Of Treatment: With concern for developing PNA will start meds, he has no money or insurance. He requests med on $[address] [facility], [place] -- start amoxicillin and RTO if any concerns. He states he has symbicort and albuterol at home and will restart that - Differential Dx/Diagnosis Differential Diagnosis/HQI/PQRI: Bronchitis, Lower Resp Infection, Sinusitis Provider Diagnoses: Bronchitis Discharge - Discharge Plan Condition: Good Disposition: HOME Prescriptions: Amoxicillin PO (*) [Amoxicillin 875 MG (*)] 875 mg PO BID #20 tab Patient Education Materials: Acute Bronchitis (ED) Referrals: No Primary Care Phys,NOPCP [Primary Care Provider] - If Needed Additional Instructions: Since there is concern that your bronchitis if untreated could become pneumonia we advise you to start the antibiotics.
== END 2017-01-24 18:01 | disposition home or self-care (01) ==
LOC: UCCORT 16:23
DX: J40 Bronchitis, not specified as acute or chronic (principal); Z90.49 Acquired absence of other specified parts of digestive tract; Z87.891 Personal history of nicotine dependence
CPT/HCPCS: 99212; G0463

== ENCOUNTER 2017-01-28 20:43 | Emergency (ER) | payer SELFPAY ==
[2017-01-28 20:55] VITALS: BP 130/86
[2017-01-28] MEDS ORDERED: Ketorolac INJ* 60 MG/2 ML VIAL IM ONE (21:10)
--- NOTE | 2017-01-28 21:11 | UC ---
Back Pain HPI - HPI Summary HPI Summary: 36M presents with acute on chronic back pain since today. He states pain has been gradually getting worst for past two weeks. His pain is where it typically is. He states that pain started while he was standing up. He denies any loss of bowel or bladder or saddle anaesthesia. He denies any weakness. He denies any pain into his legs. He denies any numbness or tingling into legs. He has not taken anything for pain. He has had previous injections to his back without relief. He is not currently seeing anyone for his pain or doing PT. He has script of flexeril at home. had previous MRI which showed bulging disk. He is requesting tramadol for pain. no fever. no new injury. no history of IV drug use. - History of Current Complaint Chief Complaint: UCBackPain Stated Complaint: LOW BACK PAIN Time Seen by Provider: 01/28/17 20:56 - Allergies/Home Medications Allergies/Adverse Reactions: Allergies Allergy/AdvReac Type Severity Reaction Status Date / Time No Known Allergies Allergy Verified 01/28/17 20:55 PMH/Surg Hx/FS Hx/Imm Hx Endocrine History: Other Other Endocrine History: no DM Cardiovascular History: Other Other Cardiovascular History: no CAD Other History Of: Negative For: HIV, Hepatitis B, Hepatitis C, Anticoagulant Therapy - Surgical History Surgical History: Yes Surgery Procedure, Year, and Place: 05/2014 Cholecystectomy - Family History Known Family History: Positive: Hypertension Negative: Cardiac Disease, Diabetes - Social History Alcohol Use: None Substance Use Type: Marijuana Substance Use Comment - Amount & Last Used: occassionally Smoking Status (MU): Former Smoker Type: Cigarettes Have You Smoked in the Last Year: No When Did the Patient Quit Smoking/Using Tobacco: 10 years ago - Immunization History Most Recent Influenza Vaccination: NOT IN 2017 Most Recent Tetanus Shot: UTD Most Recent Pneumonia Vaccination: N/A Review of Systems Constitutional: Negative Musculoskeletal: Myalgia - back pain All Other Systems Reviewed And Are Negative: Yes Physical Exam Triage Information Reviewed: Yes Appearance: Well-Appearing Vital Signs: Initial Vital Signs Temp 97.7 F 01/28/17 20:52 Pulse 89 01/28/17 20:52 Resp 14 01/28/17 20:52 BP 130/86 01/28/17 20:52 Vital Signs Reviewed: Yes Eyes: Positive: Conjunctiva Clear Respiratory: Positive: Lungs clear, Normal breath sounds Cardiovascular: Positive: RRR Musculoskeletal: Positive: Strength Intact - back, ROM Intact - back, Other: - no midline tenderness, tenderness to left side of back, neg SLR, good pulses Neurological: Positive: Other: - patella, achilles intact Psychological Exam: Normal Skin Exam: Normal Back Pain Course/Dx - Course Course Of Treatment: 36M presents with acute on chronic back pain since today. He states pain has been gradually getting worst for past two weeks. His pain is where it typically is. He states that pain started while he was standing up. He denies any loss of bowel or bladder or saddle anaesthesia. He denies any weakness. He denies any pain into his legs. He denies any numbness or tingling into legs. He has not taken anything for pain. He has had previous injections to his back without relief. He is not currently seeing anyone for his pain or doing PT. He has script of flexeril at home. had previous MRI which showed bulging disk. He is requesting tramadol for pain. on exam tenderness on left side of back. neurovascular intact. no midline tenderness. will treat with dose of toradol here as pharmacy closed and lidocaine patches. will have follow up with primary about back pain and elevated blood pressure. medications reviewed. patient understand and agrees with plan. - Differential Dx/Diagnosis Differential Diagnosis/HQI/PQRI: Herniated Disc, Strain, Sprain Provider Diagnoses: back pain Discharge - Discharge Plan Condition: Good Disposition: HOME Prescriptions: Lidocaine PATCH 5%* [Lidoderm 5% Patch*] 1 patch TRANSDERM DAILY #7 patch Patient Education Materials: Back Pain (ED) [place] [facility] [place],PT [Medical Doctor] - [facility] [place] [Outside] Additional Instructions: Take muscle relaxers as previously prescribed Apply lidocaine patches to area for up to 12 hours in one 24 hour period Use ibuprofen or Tylenol for pain every 6 hours ice/heat area, move as much as possible Follow up with primary within 5 days Return to ED if develop any new or worsening symptoms
== END 2017-01-28 21:41 | disposition home or self-care (01) ==
LOC: UCCORT 20:43
DX: M54.9 Dorsalgia, unspecified (principal); Z90.49 Acquired absence of other specified parts of digestive tract; F12.90 Cannabis use, unspecified, uncomplicated; Z87.891 Personal history of nicotine dependence
CPT/HCPCS: 96372; 99212; G0463; J1885

== ENCOUNTER 2017-02-04 17:36 | Emergency (ER) | payer SELFPAY ==
[2017-02-04 18:14] VITALS: BP 121/76
--- NOTE | 2017-02-04 18:46 | UC ---
Back Pain HPI - HPI Summary HPI Summary: Pt presents with LBP. He tells me that he injured his back about 1.5 years ago by bending and lifting objects. He had an MRI ~1 year ago, which revealed bulging and herniated discs - per pt. He was seen by his PCP and a chiropractor , but neither seemed to take his pain seriously. Over the last few months he has not had insurance and "deals with the pain when it flares". He is here today because yesterday he turned and tried to get out of his car, felt a pull in his lower back and immediate pain. Still painful this morning. No bowel or bladder incontinence. No numbness or tingling. No radiation of pain. Denies fever, chills, SOB, chest pain, abdominal pain, N/V/D/C - History of Current Complaint Chief Complaint: UCBackPain Stated Complaint: BACK PAIN Time Seen by Provider: 02/04/17 18:45 Hx Obtained From: Patient Onset/Duration: Gradual Onset Timing: Constant Severity Initially: Severe Severity Currently: Severe Pain Intensity: 9 Pain Scale Used: 0-10 Numeric Aggravating Factor(s): Movement, Lifting, Bending, Walking Alleviating Factor(s): Rest, Position - Allergies/Home Medications Allergies/Adverse Reactions: Allergies Allergy/AdvReac Type Severity Reaction Status Date / Time No Known Allergies Allergy Verified 02/04/17 18:14 PMH/Surg Hx/FS Hx/Imm Hx Previously Healthy: Yes Psychological History: Anxiety, Depression Other History Of: Negative For: HIV, Hepatitis B, Hepatitis C, Anticoagulant Therapy - Surgical History Surgical History: Yes Surgery Procedure, Year, and Place: 05/2014 Cholecystectomy - Family History Known Family History: Positive: Hypertension Negative: Cardiac Disease, Diabetes - Social History Occupation: Employed Full-time Lives: Alone Alcohol Use: None Substance Use Type: Marijuana Substance Use Comment - Amount & Last Used: occassionally Smoking Status (MU): Former Smoker Type: Cigarettes Have You Smoked in the Last Year: No When Did the Patient Quit Smoking/Using Tobacco: 10 years ago - Immunization History Most Recent Influenza Vaccination: NOT IN 2017 Most Recent Tetanus Shot: UTD Most Recent Pneumonia Vaccination: N/A Review of Systems Constitutional: Negative Skin: Negative Neurovascular: Negative Musculoskeletal: Decreased ROM - Spine, Other: - LBP pain Neurological: Negative Psychological: Negative All Other Systems Reviewed And Are Negative: Yes Physical Exam Triage Information Reviewed: Yes Appearance: Well-Nourished, Pain Distress Vital Signs: Initial Vital Signs Temp 98.5 F 02/04/17 18:11 Pulse 88 02/04/17 18:11 Resp 18 02/04/17 18:11 BP 121/76 02/04/17 18:11 Pulse Ox 98 02/04/17 18:11 Vital Signs Reviewed: Yes Neck: Positive: Supple, No Lymphadenopathy, Other: - FROM. NTTP Respiratory: Positive: Chest non-tender, Lungs clear, Normal breath sounds, No respiratory distress, No accessory muscle use Cardiovascular: Positive: RRR, No Murmur, Pulses Normal Abdomen Description: Positive: Nontender, No Organomegaly, Soft. Negative: CVA Tenderness (R), CVA Tenderness (L), Distended, Guarding Bowel Sounds: Positive: Present Musculoskeletal: Positive: No Edema, Strength Limited @ - Spine, ROM Limited @ - Spine. Unable to flex >60deg. Unable to extend., Other: - TTP over lower paraspinal muscles. No vertebral tenderness. 5/5 strength dorsiflexion and plantar flexion. Positive SLR. Positive JESUS LBP Neurological: Positive: Alert, Muscle Tone Normal, Other: - CN II XII grossly intact. strength 5/5 LEs. L2-S1 sensations intact. Reflexes: knee and ankle intact. Psychological: Positive: Age Appropriate Behavior Skin: Negative: rashes, significant lesion(s) Back Pain Course/Dx - Course Course Of Treatment: LBP - Toradol inj today. Pt does not have insurance or financial means to seek follow up or addtional medication tx. He will rest, ice , and heat his back. - Differential Dx/Diagnosis Differential Diagnosis/HQI/PQRI: Cauda Equina Syndrome, Compressive Cord Syndrome, Fracture, Herniated Disc, Strain, Sprain Provider Diagnoses: Low back pain Discharge - Discharge Plan Condition: Stable Disposition: HOME Patient Education Materials: Back Pain (ED) Referrals: No Primary Care Phys,NOPCP [Primary Care Provider] - Additional Instructions: If you develop a fever, SOB, chest pain, bladder or bowel incontinence, new or worsening symptoms - please call your PCP or go to the ED.
[2017-02-04] MEDS ORDERED: Ketorolac INJ* 60 MG/2 ML VIAL IM ONE (18:51)
== END 2017-02-04 19:15 | disposition home or self-care (01) ==
LOC: UCCORT 17:36
DX: M54.5 Low back pain (principal); F41.9 Anxiety disorder, unspecified; F32.9 Major depressive disorder, single episode, unspecified; Z90.49 Acquired absence of other specified parts of digestive tract; Z87.891 Personal history of nicotine dependence
CPT/HCPCS: 96372; 99211; G0463; J1885

== ENCOUNTER 2017-02-18 18:42 | Emergency (ER) | payer SELFPAY ==
[2017-02-18 19:04] VITALS: BP 109/75
--- NOTE | 2017-02-18 19:58 | UC ---
Back Pain HPI - HPI Summary HPI Summary: History of degenerative disc disease. yesterday left sided low back pain. No significant mechanism of injury. No loss of control of bladder or bowels. No bruising. - History of Current Complaint Hx Obtained From: Patient, Family/Graduate Assistant Onset/Duration: Gradual Onset, Lasting Days Timing: Lasting Days Severity Initially: Moderate Severity Currently: Moderate Back Pain: Is Discrete @ - left low back, Radiates To - back of left leg Aggravating Factor(s): Movement, Lifting, Bending Alleviating Factor(s): Rest, Position Associated Signs And Symptoms: Negative: Swelling, Redness, Bruising, Fever, Weakness, Numbness, Tingling, Abdominal Pain, Flank Pain, Bladder Incontinence, Bowel Incontinence, Pain with Weight Bearing Related History: Previous Back Injury - Risk Factors TAD Risk Factors: Negative Cauda Equina Risk Factors: Negative Epidural Abscess Risk Factors: Negative <Vijay Tamez - Last Filed: 02/18/17 19:54> <Melissa Verma - Last Filed: 02/18/17 20:07> - History of Current Complaint Chief Complaint: UCBackPain Stated Complaint: LOWER BACK PAIN Time Seen by Provider: 02/18/17 19:26 - Allergies/Home Medications Allergies/Adverse Reactions: Allergies Allergy/AdvReac Type Severity Reaction Status Date / Time No Known Allergies Allergy Verified 02/18/17 18:57 PMH/Surg Hx/FS Hx/Imm Hx Previously Healthy: Yes Other History Of: Negative For: HIV, Hepatitis B, Hepatitis C, Anticoagulant Therapy - Surgical History Surgical History: Yes Surgery Procedure, Year, and Place: 05/2014 Cholecystectomy - Family History Known Family History: Positive: Hypertension Negative: Cardiac Disease, Diabetes - Social History Occupation: Employed Full-time Lives: With Family Alcohol Use: None Substance Use Type: Marijuana Substance Use Comment - Amount & Last Used: occassionally Smoking Status (MU): Former Smoker Type: Cigarettes Have You Smoked in the Last Year: No When Did the Patient Quit Smoking/Using Tobacco: 10 years ago - Immunization History Most Recent Influenza Vaccination: NOT IN 2017 Most Recent Tetanus Shot: UTD Most Recent Pneumonia Vaccination: N/A <Vijay Tamez - Last Filed: 02/18/17 19:54> Review of Systems Constitutional: Negative Skin: Negative Eyes: Negative ENT: Negative Respiratory: Negative Cardiovascular: Negative Gastrointestinal: Negative Genitourinary: Negative Motor: Negative Neurovascular: Negative Musculoskeletal: Arthralgia, Myalgia Neurological: Negative Psychological: Negative Is Patient Immunocompromised?: No All Other Systems Reviewed And Are Negative: Yes <Vijay Tamez - Last Filed: 02/18/17 19:54> Physical Exam Triage Information Reviewed: Yes Appearance: Well-Appearing, Well-Nourished, Pain Distress Vital Signs: Initial Vital Signs Temp 98.8 F 02/18/17 18:58 Pulse 106 02/18/17 18:58 Resp 16 02/18/17 18:58 BP 109/75 02/18/17 18:58 Pulse Ox 98 02/18/17 18:58 Vital Signs Reviewed: Yes Eye Exam: Normal ENT Exam: Normal ENT: Positive: Normal ENT inspection, Hearing grossly normal, Pharynx normal Dental Exam: Normal Neck exam: Normal Neck: Positive: Supple, Nontender, No Lymphadenopathy Respiratory Exam: Normal Respiratory: Positive: Chest non-tender, Lungs clear, Normal breath sounds, No respiratory distress, No accessory muscle use Cardiovascular Exam: Normal Cardiovascular: Positive: RRR, No Murmur, Pulses Normal, Brisk Capillary Refill Abdominal Exam: Normal Abdomen Description: Positive: Nontender, No Organomegaly. Negative: CVA Tenderness (R), CVA Tenderness (L) Musculoskeletal: Positive: Strength Intact, No Edema, ROM Limited @, Other: - POSITIVE STRAIGHT LEG RAISE LEFT 20DEGREES; RIGHT 45 DEGREES; LEFT MORE PAINFUL THAN RIGHT Neurological Exam: Normal Psychological Exam: Normal Skin Exam: Normal <Vijay Tamez - Last Filed: 02/18/17 19:54> Vital Signs: Initial Vital Signs Temp 98.8 F 02/18/17 18:58 Pulse 106 02/18/17 18:58 Resp 16 02/18/17 18:58 BP 109/75 02/18/17 18:58 Pulse Ox 98 02/18/17 18:58 <Melissa Verma - Last Filed: 02/18/17 20:07> Back Pain Course/Dx - Differential Dx/Diagnosis Differential Diagnosis/HQI/PQRI: Strain, Sprain Provider Diagnoses: LOW BACK PAIN, SCIATICA <Vijay Tamez - Last Filed: 02/18/17 19:54> Discharge <Vijay Tamez - Last Filed: 02/18/17 19:54> <Melissa Verma - Last Filed: 02/18/17 20:07> - Discharge Plan Condition: Stable Disposition: HOME Prescriptions: Carisoprodol TAB* [Soma TAB*] 350 mg PO BID #10 tab MDD two tabs Hydrocodone-Acetaminophen [Towson 5-325 mg] 1 tab PO Q8HR #12 tab MDD three tabs Patient Education Materials: Sciatica (ED), Acute Low Back Pain (ED) Forms: *Work Release Referrals: [facility] [place] PHYSICIAN REFERRAL [Outside] No Primary Care Phys,NOPCP [Primary Care Provider] - Additional Instructions: PHYSICAL THERAPY REFERRAL: You have been prescribed physical therapy. Treatments may include stretching, exercise, application of heat or cold, and other modalities. After an injury, PT can reduce swelling and pain. In recovery, PT is used to restore mobility and strength. Your specific treatment goals are: Reduction of Swelling (EGS, US, ice as needed) __x___ Pain Reduction (EGS, US, ice as needed) ___x__ TENS Pack Fitting and Instruction Wound Hydrotherapy __x___ Preservation of Mobility ____x_ Taoism of Mobility ___x__ Strength Taoism ___x__ Work or Sports Hardening This instruction sheet also serves as your PHYSICAL THERAPY REFERRAL! Please take it with you to the therapist, so he/she will be aware of your diagnosis and treatment plan. You may see the physical therapist of your choice for these treatments, but may wish to check with your insurance to be sure the provider you select is covered. It's important to see the doctor to whom you have been referred for follow up. Attestation Statement User Type: Provider - I was available for consult. This patient was seen by the JO-ANN. The patient was not presented to, seen by, or examined by me. -Fred <Melissa Verma - Last Filed: 02/18/17 20:07>
== END 2017-02-18 19:57 | disposition home or self-care (01) ==
LOC: UCCORT 18:42
DX: M54.42 Lumbago with sciatica, left side (principal); Z90.49 Acquired absence of other specified parts of digestive tract; F12.90 Cannabis use, unspecified, uncomplicated; Z87.891 Personal history of nicotine dependence
CPT/HCPCS: 99212; G0463

== ENCOUNTER 2017-04-21 09:21 | Emergency (ER) | payer OTHER ==
[2017-04-21 10:25] VITALS: BP 118/67
--- NOTE | 2017-04-21 10:52 | UC ---
Upper Extremity HPI - HPI Summary HPI Summary: Left lower neck pain around the shoulder blade that hurts more when he turns his head. Atraumatic. NO numbness or tingling. he is not working now. - History of Current Complaint Chief Complaint: UCUpperExtremity Stated Complaint: LEFT SHOULDER PAIN Time Seen by Provider: 04/21/17 10:17 Hx Obtained From: Patient Onset/Duration: Gradual Onset, Lasting Days, Still Present Severity Initially: Moderate Severity Currently: Moderate Pain Intensity: 7 Location Of Pain: Is Discrete @ Character: Aching Aggravating Factor(s): Movement Alleviating Factor(s): Rest Associated Signs And Symptoms: Negative: Numbness/Tingling - Allergies/Home Medications Allergies/Adverse Reactions: Allergies Allergy/AdvReac Type Severity Reaction Status Date / Time No Known Allergies Allergy Verified 04/21/17 10:25 PMH/Surg Hx/FS Hx/Imm Hx Previously Healthy: No Other History Of: Negative For: HIV, Hepatitis B, Hepatitis C, Anticoagulant Therapy - Surgical History Surgical History: Yes Surgery Procedure, Year, and Place: 05/2014 Cholecystectomy - Family History Known Family History: Positive: Hypertension Negative: Cardiac Disease, Diabetes - Social History Alcohol Use: Occasionally Substance Use Type: Marijuana Substance Use Comment - Amount & Last Used: occassionally Smoking Status (MU): Former Smoker Type: Cigarettes Have You Smoked in the Last Year: No When Did the Patient Quit Smoking/Using Tobacco: 10 years ago - Immunization History Most Recent Influenza Vaccination: NOT IN 2016 Most Recent Tetanus Shot: UTD Most Recent Pneumonia Vaccination: N/A Review of Systems Musculoskeletal: Myalgia All Other Systems Reviewed And Are Negative: Yes Physical Exam Triage Information Reviewed: Yes Appearance: Well-Appearing, No Pain Distress, Well-Nourished Vital Signs: Initial Vital Signs Temp 99.3 F 04/21/17 10:21 Pulse 88 04/21/17 10:21 Resp 18 04/21/17 10:21 BP 118/67 04/21/17 10:21 Pulse Ox 97 04/21/17 10:21 Vital Signs Reviewed: Yes Eyes: Positive: Conjunctiva Clear ENT: Positive: Normal ENT inspection Neck: Negative: Nuchal Rigidity Respiratory: Positive: No respiratory distress, No accessory muscle use Cardiovascular: Positive: Brisk Capillary Refill Abdomen Description: Negative: Distended Musculoskeletal Exam: Other - Tenderness in the area of the left rhomboid. No midline c spine tenderness. Neg spurling. Rull rom of the arms and neg empty can. Neurological: Positive: Alert, Muscle Tone Normal. Negative: Fatigued Psychological: Positive: Age Appropriate Behavior Skin: Negative: rashes Upper Extremity Course/Dx - Differential Dx/Diagnosis Provider Diagnoses: cervical muscle strain. Discharge - Discharge Plan Condition: Good Disposition: HOME Prescriptions: Cyclobenzaprine TAB* [Flexeril 10 MG TAB*] 10 mg PO BEDTIME PRN #10 tab PRN Reason: Pain Naproxen [Naproxen 500 mg] 500 mg PO BID PRN #20 tab PRN Reason: Pain Patient Education Materials: Neck Pain (ED) Referrals: Zahra Womack PA [Primary Care Provider] - Additional Instructions: Start physical therapy.;
== END 2017-04-21 11:03 | disposition home or self-care (01) ==
LOC: UCCORT 09:21
DX: S16.1XXA Strain of muscle, fascia and tendon at neck level, initial encounter (principal); X58.XXXA Exposure to other specified factors, initial encounter; Y93.9 Activity, unspecified; Y92.9 Unspecified place or not applicable; Z87.891 Personal history of nicotine dependence
CPT/HCPCS: 99212; G0463

== ENCOUNTER 2017-04-26 09:29 | Emergency (ER) | payer OTHER ==
[2017-04-26 11:35] VITALS: BP 125/87
--- NOTE | 2017-04-26 12:04 | UC ---
Back Pain HPI - HPI Summary HPI Summary: Pt is c/o pain, gesturing to his L medial scapular border. Sometimes it radiates into his L upper arm. He notes relief with place arm over head and bent at the elbow. He denies any injury, cp, sob, nausea and sweating. It is not exertional. Pt seen here on for same and tx with flexeril then went to ER and tx with fentanyl. While in ER states had CT of his chest, labs and a negative heart workup. self txing with occasional otc aleve. here because can't see pcp until this coming saturday and still uncomfortable. - History of Current Complaint Stated Complaint: LEFT SHOULDER/ARM PAIN Time Seen by Provider: 04/26/17 11:25 Hx Obtained From: Patient Onset/Duration: Gradual Onset Timing: Constant Pain Intensity: 9 Character: Sharp Aggravating Factor(s): Nothing Alleviating Factor(s): Nothing - arm over head as in hpi Associated Signs And Symptoms: Positive: Other - radiates into LUE - Risk Factors AAA Risk Factors: Negative TAD Risk Factors: Negative Cauda Equina Risk Factors: Negative Epidural Abscess Risk Factors: Negative - Allergies/Home Medications Allergies/Adverse Reactions: Allergies Allergy/AdvReac Type Severity Reaction Status Date / Time No Known Allergies Allergy Verified 04/26/17 11:32 PMH/Surg Hx/FS Hx/Imm Hx Respiratory History: Asthma Neurological History: Migraine Other History Of: Negative For: HIV, Hepatitis B - chronic low back pain, plus per triage, Hepatitis C, Anticoagulant Therapy - Surgical History Surgical History: Yes Surgery Procedure, Year, and Place: 05/2014 Cholecystectomy - Family History Known Family History: Positive: Hypertension Negative: Cardiac Disease, Diabetes - Social History Alcohol Use: Occasionally Substance Use Type: Marijuana Substance Use Comment - Amount & Last Used: occassionally Smoking Status (MU): Former Smoker Type: Cigarettes Have You Smoked in the Last Year: No When Did the Patient Quit Smoking/Using Tobacco: 10 years ago - Immunization History Most Recent Influenza Vaccination: NOT IN 2017 Most Recent Tetanus Shot: UTD Most Recent Pneumonia Vaccination: N/A Review of Systems Constitutional: Negative Skin: Negative Eyes: Negative ENT: Negative Respiratory: Negative Cardiovascular: Negative Gastrointestinal: Negative Genitourinary: Negative Motor: Negative Neurovascular: Negative Musculoskeletal: Other: - pain L medial scapular border. occ radiates LUE. Neurological: Negative Psychological: Negative Is Patient Immunocompromised?: No All Other Systems Reviewed And Are Negative: Yes Physical Exam Triage Information Reviewed: Yes Appearance: Well-Appearing Vital Signs: Initial Vital Signs Temp 98 F 04/26/17 11:26 Pulse 88 04/26/17 11:26 Resp 18 04/26/17 11:26 BP 125/87 04/26/17 11:26 Pulse Ox 98 04/26/17 11:26 Eye Exam: Normal ENT: Positive: Normal ENT inspection Neck: Positive: Supple, Nontender, No Lymphadenopathy Respiratory: Positive: Chest non-tender, Lungs clear, Normal breath sounds Cardiovascular: Positive: RRR, No Murmur, Pulses Normal Abdomen Description: Positive: Nontender, No Organomegaly, Soft Bowel Sounds: Positive: Present Musculoskeletal: Positive: Other: - Bared from waist up: trunk is without gross deformity, swelling or discoloration and symmetrical. Spine has no deformity and is non tender. Palpation along L medial-scapular border reproduces and exacerbates pt pain. 5/5 strength x4. 2+ reflexes x4. Strong symmetrical radial pulses. Neurological Exam: Normal Neurological: Positive: Alert Psychological: Positive: Normal Response To Family, Age Appropriate Behavior Skin Exam: Normal Back Pain Course/Dx - Course Course Of Treatment: non toxic, no concern for TAA,AAA or PE or ACS plus pt states had CT and negative cardiac workup by er for this. no indication for xrays. Hx/Exam supports L medial scapular musculoskeletal pain with radiculopathy. will tx nsaid and PT referal. pt has f/u pcp this saturday. - Differential Dx/Diagnosis Provider Diagnoses: L medial-scapular musculoskeletal pain with radiculopathy Discharge - Discharge Plan Condition: Stable Disposition: HOME Prescriptions: Naproxen [Naprosyn] 500 mg PO BID 10 Days #20 tablet Patient Education Materials: Back Pain (ED), Cervical Radiculopathy (ED) Referrals: Zahra Womack PA [Primary Care Provider] - 4 Days Additional Instructions: PT REFERAL GIVEN. CALL TODAY FOR NEXT AVAILABLE APPOINTMENT
== END 2017-04-26 12:17 | disposition home or self-care (01) ==
LOC: UCCORT 09:29
DX: M25.512 Pain in left shoulder (principal); M54.10 Radiculopathy, site unspecified; Z87.891 Personal history of nicotine dependence
CPT/HCPCS: 99212; G0463

== ENCOUNTER 2017-07-17 18:41 | Emergency (ER) | payer OTHER ==
[2017-07-17 19:11] VITALS: BP 108/72
--- NOTE | 2017-07-17 19:35 | UC ---
Back Pain HPI - HPI Summary HPI Summary: Pt c/o gradual onset of low back pain and stiffness. Has history of "bulging discs" and reports that recently he has been doing frequnet lifting and twisting of heavy items at work. Denies, numbness, tingling, loss of bowel or bladder control, or saddle paraesthesia. - History of Current Complaint Chief Complaint: UCBackPain Stated Complaint: LOW BACK PAIN Time Seen by Provider: 07/17/17 19:28 Hx Obtained From: Patient Onset/Duration: Gradual Onset, Lasting Days, Still Present Timing: Constant Severity Initially: Mild Severity Currently: Moderate Pain Intensity: 8 Back Pain: Is Discrete @ - low back Character: Dull, Aching, Spasmodic, Stiffness Aggravating Factor(s): Movement, Walking Alleviating Factor(s): Rest, Position Associated Signs And Symptoms: Positive: Negative - Risk Factors AAA Risk Factors: Negative TAD Risk Factors: Negative Cauda Equina Risk Factors: Negative Epidural Abscess Risk Factors: Negative - Allergies/Home Medications Allergies/Adverse Reactions: Allergies Allergy/AdvReac Type Severity Reaction Status Date / Time No Known Allergies Allergy Verified 07/17/17 19:05 PMH/Surg Hx/FS Hx/Imm Hx Previously Healthy: Yes Other History Of: Negative For: HIV, Hepatitis B - chronic low back pain, plus per triage, Hepatitis C, Anticoagulant Therapy - Surgical History Surgical History: Yes Surgery Procedure, Year, and Place: 05/2014 Cholecystectomy - Family History Known Family History: Positive: Hypertension Negative: Cardiac Disease, Diabetes - Social History Occupation: Employed Full-time Lives: With Family Alcohol Use: Rare Substance Use Type: None Substance Use Comment - Amount & Last Used: occassionally Smoking Status (MU): Former Smoker Type: Cigarettes Have You Smoked in the Last Year: No When Did the Patient Quit Smoking/Using Tobacco: 10 years ago - Immunization History Most Recent Influenza Vaccination: NOT IN 2017 Most Recent Tetanus Shot: UTD Most Recent Pneumonia Vaccination: N/A Review of Systems Constitutional: Negative Skin: Negative Eyes: Negative ENT: Negative Respiratory: Negative Cardiovascular: Negative Gastrointestinal: Negative Genitourinary: Negative Motor: Decreased ROM - low back Neurovascular: Negative Musculoskeletal: Arthralgia - low back, Decreased ROM, Myalgia Neurological: Negative Psychological: Negative Is Patient Immunocompromised?: No All Other Systems Reviewed And Are Negative: Yes Physical Exam Triage Information Reviewed: Yes Appearance: Pain Distress Vital Signs: Initial Vital Signs Temp 98.8 F 07/17/17 19:07 Pulse 91 07/17/17 19:07 Resp 17 07/17/17 19:07 BP 108/72 07/17/17 19:07 Pulse Ox 97 07/17/17 19:07 Vital Signs Reviewed: Yes Eye Exam: Normal ENT: Positive: Hearing grossly normal Neck exam: Normal Respiratory Exam: Normal Cardiovascular Exam: Normal Musculoskeletal Exam: Other Musculoskeletal: Positive: Strength Intact, ROM Limited @ - low back Neurological Exam: Normal Psychological Exam: Normal Skin Exam: Normal Back Pain Course/Dx - Differential Dx/Diagnosis Differential Diagnosis/HQI/PQRI: Herniated Disc, Strain Provider Diagnoses: low back strain Discharge - Sign-Out/Discharge Documenting (check all that apply): Discharge/Admit/Transfer - Discharge Plan Condition: Stable Disposition: HOME Prescriptions: Cyclobenzaprine TAB* [Flexeril 10 MG TAB*] 10 mg PO TID PRN #15 tab PRN Reason: Pain predniSONE TAB* [Deltasone TAB*] 40 mg PO DAILY #6 tab Patient Education Materials: Low Back Strain (ED), Lower Back Exercises (ED) Forms: *Work Release Referrals: Zahra Womack PA [Primary Care Provider] - If Needed Anthony JAMES,Yosef Sanchez [Medical Doctor] - If Needed - Billing Disposition and Condition Condition: STABLE Disposition: HOME
[2017-07-17] MEDS ORDERED: Ketorolac INJ* 60 MG/2 ML VIAL IM ONE (19:36)
== END 2017-07-17 20:05 | disposition home or self-care (01) ==
LOC: UCCORT 18:41
DX: S39.012A Strain of muscle, fascia and tendon of lower back, initial encounter (principal); X50.0XXA Overexertion from strenuous movement or load, initial encounter; Y92.9 Unspecified place or not applicable; Z87.891 Personal history of nicotine dependence
CPT/HCPCS: 96372; 99212; G0463; J1885

== ENCOUNTER 2017-12-30 11:19 | Emergency (ER) | payer OTHER ==
[2017-12-30 13:25] VITALS: BP 111/79
[2017-12-30] MEDS ORDERED: Ketorolac INJ* 30 MG/ML 1 ML VIAL IM ONE (13:59)
--- NOTE | 2017-12-30 14:17 | UC ---
Upper Extremity HPI - HPI Summary HPI Summary: 37 year old male presents with bilateral upper arm pain for about 1 week. Describes as sharp, spasmotic pain. Non-radiating. Worsens with movement. Has not taken any OTC pain medication. States had similar episode about 1 year ago that resolved on its own. He is also complaining of redness, swelling, and tenderness to left upper ear lobe that started around the same time. Denies fever, chills, injury, rash, bruising, chest pain, shortness of breath, abdominal pain, nausea, or vomiting. - History of Current Complaint Chief Complaint: UCGeneralIllness Stated Complaint: BILATERAL ARM PAIN Time Seen by Provider: 12/30/17 13:34 Hx Obtained From: Patient Onset/Duration: Gradual Onset, Lasting Days Severity Currently: Moderate Pain Intensity: 6 Character: Sharp, Spasmodic Aggravating Factor(s): Movement, Lifting Alleviating Factor(s): Nothing Associated Signs And Symptoms: Negative: Bruising, Fever, Weakness, Numbness/ Tingling - Allergies/Home Medications Allergies/Adverse Reactions: Allergies Allergy/AdvReac Type Severity Reaction Status Date / Time No Known Allergies Allergy Verified 12/30/17 13:21 PMH/Surg Hx/FS Hx/Imm Hx Previously Healthy: Yes - Denies significant PMH Other History Of: Negative For: HIV, Hepatitis B - chronic low back pain, plus per triage, Hepatitis C, Anticoagulant Therapy - Surgical History Surgical History: Yes Surgery Procedure, Year, and Place: Cholecystectomy, 2014, [place] - Family History Known Family History: Positive: Hypertension Negative: Cardiac Disease, Diabetes - Social History Occupation: Employed Full-time Lives: With Family Alcohol Use: Rare Substance Use Type: None Substance Use Comment - Amount & Last Used: occassionally Smoking Status (MU): Former Smoker Type: Cigarettes Length of Time of Smoking/Using Tobacco: <1 PPD x 4 Years Have You Smoked in the Last Year: No When Did the Patient Quit Smoking/Using Tobacco: 2007 - Immunization History Most Recent Influenza Vaccination: NOT IN 2017 Most Recent Tetanus Shot: UTD Most Recent Pneumonia Vaccination: N/A Review of Systems Constitutional: Negative Skin: Other - See HPI Respiratory: Negative Cardiovascular: Negative Gastrointestinal: Negative Motor: Negative Neurovascular: Negative Musculoskeletal: Other: - See HPI Neurological: Negative Is Patient Immunocompromised?: No All Other Systems Reviewed And Are Negative: Yes Physical Exam Triage Information Reviewed: Yes Appearance: Well-Appearing, No Pain Distress, Well-Nourished Vital Signs: Initial Vital Signs Temp 97.8 F 12/30/17 13:19 Pulse 88 12/30/17 13:19 Resp 18 12/30/17 13:19 BP 111/79 12/30/17 13:19 Pulse Ox 98 12/30/17 13:19 ENT: Positive: Other - Small area of erythema, tenderness, and mild swelling to left upper ear lobe. No induration or fluctuance. Neck: Positive: Supple, Nontender, No Lymphadenopathy Respiratory: Positive: Lungs clear, Normal breath sounds, No respiratory distress Cardiovascular: Positive: RRR, No Murmur, Pulses Normal, Brisk Capillary Refill Musculoskeletal: Positive: Strength Intact, ROM Intact, Other: - Tenderness to bilateral triceps. No spasm noted. Bilateral shoulders nontender with full painless ROM. Neurological: Positive: Alert, Other: - Sensation intact distally Skin Exam: Normal Upper Extremity Course/Dx - Course Course Of Treatment: 37 year old male with bilateral non-traumatic upper arm pain and a tender erythematous left upper ear lobe. Exam was unremarkable except for some mild tricep tenderness and mild erythema to the upper left ear lobe. Recommend NSAIDs for pain. Will treat with day course of Keflex for a mild cellulitis of the ear lobe. Reviewed warning symptoms with patient. Verbalizes understanding and agrees with POC. - Differential Dx/Diagnosis Provider Diagnoses: Bilateral upper arm pain, celluitis left ear lobe Discharge - Sign-Out/Discharge Documenting (check all that apply): Patient Departure All imaging exams completed and their final reports reviewed: No Studies - Discharge Plan Condition: Stable Disposition: HOME Prescriptions: Cephalexin CAP* [Keflex 500 CAP*] 500 mg PO TID #15 cap Naproxen [Naproxen 500 mg tab] 500 mg PO Q12HR #30 tablet Patient Education Materials: Cellulitis (ED), Arm Pain (ED) Referrals: Zahra Womack PA [Primary Care Provider] - 5 Days (If no improvement in symptoms.) Additional Instructions: You were given a shot of a pain medication called ketoralac (Toradol) in the clinic today. This is an anti-inflammatory medication therefore you should not take any other anti-inflammatory medications such as ibuprofen (Advil, Motrin), naproxen (Aleve), or aspirin for at least 8 hours after receiving. I have given you a prescription for naproxen to start at bedtime tonight for the pain. Take 1 tablet every 12 hours with food for next 7 days. After 7 days you may take as needed. I am treating you for an infection of the skin to your ear lobe. Take cephalexin 1 cap every 12 hours for 5 days. Follow up with your primary care provider in 5 days if no improvement in symptoms. Seek immediate medical attention in the emergency room if you develop fever greater than 100.5 F, have redness that spreads, worsening of pain despite taking pain medication, have chest pain, shortness of breath, or any worsening of symptoms. - Billing Disposition and Condition Condition: STABLE Disposition: Home
== END 2017-12-30 14:35 | disposition home or self-care (01) ==
LOC: UCCORT 11:19
DX: M79.622 Pain in left upper arm (principal); M79.621 Pain in right upper arm; H60.12 Cellulitis of left external ear; Z87.891 Personal history of nicotine dependence
CPT/HCPCS: 96372; 99212; G0463; J1885

== ENCOUNTER 2018-03-11 16:02 | Emergency (ER) | payer SELFPAY ==
[2018-03-11 18:48] VITALS: BP 126/82
--- NOTE | 2018-03-11 18:49 | UC ---
Upper Extremity HPI - HPI Summary HPI Summary: 38-year-old male presents with one-week history of left arm pain. Describes pain as constant and sharp. States starts in the left side of neck and radiates down his upper and ulnar forearm. Denies aggravating factors. States has taken naproxen with some improvement in the pain. Denies weakness, numbness , or tingling of the extremity. - History of Current Complaint Chief Complaint: UCUpperExtremity Stated Complaint: LEFT ARM CONCERN Time Seen by Provider: 03/11/18 18:28 Hx Obtained From: Patient Pain Intensity: 8 - Allergies/Home Medications Allergies/Adverse Reactions: Allergies Allergy/AdvReac Type Severity Reaction Status Date / Time No Known Allergies Allergy Verified 03/11/18 16:10 Home Medications: Home Medications NK [No Home Medications Reported] 03/11/18 [History Confirmed 03/11/18] PMH/Surg Hx/FS Hx/Imm Hx Previously Healthy: Yes - Denies significant PMH Other History Of: Negative For: HIV, Hepatitis B - chronic low back pain, plus per triage, Hepatitis C, Anticoagulant Therapy - Surgical History Surgical History: Yes Surgery Procedure, Year, and Place: Cholecystectomy, 2015, [place] - Family History Known Family History: Positive: Hypertension - Social History Occupation: Employed Full-time Lives: Alone Alcohol Use: Occasionally Substance Use Type: None Substance Use Comment - Amount & Last Used: occassionally Smoking Status (MU): Former Smoker Type: Cigarettes Length of Time of Smoking/Using Tobacco: <1 PPD x 4 Years Have You Smoked in the Last Year: No When Did the Patient Quit Smoking/Using Tobacco: 2007 - Immunization History Most Recent Influenza Vaccination: NOT IN 2017 Most Recent Tetanus Shot: UTD Most Recent Pneumonia Vaccination: N/A Review of Systems All Other Systems Reviewed And Are Negative: Yes Constitutional: Negative: Fever, Chills Skin: Negative: Rash Respiratory: Negative: Shortness Of Breath, Cough Cardiovascular: Negative: Palpitations, Chest Pain Gastrointestinal: Negative: Abdominal Pain, Vomiting, Diarrhea, Nausea Motor: Negative: Weakness Neurovascular: Negative: Decreased Sensation Musculoskeletal: Positive: Other: - See HPI. Negative: Decreased ROM Neurological: Positive: Negative Is Patient Immunocompromised?: No Physical Exam - Summary Physical Exam Summary: GENERAL APPEARANCE: Well developed, well nourished, alert and cooperative, and appears to be in no acute distress. NECK: Neck supple, non-tender. CARDIAC: Normal S1 and S2. No S3, S4 or murmurs. Rhythm is regular. There is no peripheral edema, cyanosis or pallor. Extremities are warm and well perfused. Capillary refill is less than 2 seconds. Peripheral pulses intact. LUNGS: Clear to auscultation and percussion without rales, rhonchi, wheezing or diminished breath sounds. ABDOMEN: Positive bowel sounds. Soft, nondistended, nontender. No guarding or rebound. No masses or hepatosplenomegally. MUSKULOSKELETAL: ROM intact to left shoulder. No joint erythema or tenderness. Normal muscular development. Floating Operator strength intact and equal bilaterally. BACK: Examination of the spine reveals normal gait and posture, no spinal deformity or tenderness, decreased range of motion or muscular spasm. NEUROLOGICAL: Strength and sensation symmetric and intact. SKIN: Skin normal color, texture and turgor with no lesions or eruptions. Triage Information Reviewed: Yes Vital Signs: Initial Vital Signs Temp 97.4 F 03/11/18 16:08 Pulse 98 03/11/18 16:08 Resp 14 03/11/18 16:08 BP 139/84 03/11/18 16:08 Pulse Ox 97 03/11/18 16:08 Vital Signs Reviewed: Yes Upper Extremity Course/Dx - Course Course Of Treatment: 38-year-old male presents with one-week history of left arm pain. Describes pain as constant and sharp. States starts in the left side of neck and radiates down his upper and ulnar forearm. Denies aggravating factors. States has taken naproxen with some improvement in the pain. Denies weakness, numbness, or tingling of the extremity. Afebrile. Vital signs stable. Exam revealed an adult male in no acute distress. Exam was unremarkable. Suspect symptoms may be a cervical radiculopathy. Recommending continued use of NSAIDs. Patient states that he had some tizanidine at home and was instructed that he could use this as directed. He was given a referral to physical therapy for evaluation and treatment. He is to follow-up with his primary care provider in one week if symptoms do not improve. Warning symptoms were reviewed with the patient. Verbalizes understanding and agrees with plan of care. - Differential Dx/Diagnosis Differential Diagnosis/HQI/PQRI: Arthritis, Contusion, Strain, Sprain, Other - Cervical radiculopathy Provider Diagnosis: Pain of left upper extremity Discharge - Sign-Out/Discharge Documenting (check all that apply): Patient Departure All imaging exams completed and their final reports reviewed: No Studies - Discharge Plan Condition: Stable Disposition: HOME Patient Education Materials: Cervical Radiculopathy (ED) Referrals: Zahra Womack PA [Primary Care Provider] - 7 Days (If no improvement in symptoms.) Additional Instructions: I suspect that your arm pain may be from a condition called cervical radiculopathy. Continue taking naproxen according to directions. Be sure to take with food. I have provided you with a referral to phyical therapy for evaluation and treatment. Follow up with you primary care provider in 7 days if symptoms do not improve. Seek immediate medical attention in the emergency room if you develop chest pain , feel as if your hear is racing or skipping beats, are short of breath, develop weakness, numbness, or tingling in the arm, or have any worsening of symptoms. - Billing Disposition and Condition Condition: STABLE Disposition: Home
== END 2018-03-11 18:55 | disposition home or self-care (01) ==
LOC: UCCORT 16:02
DX: M79.602 Pain in left arm (principal); Z87.891 Personal history of nicotine dependence
CPT/HCPCS: 99212; G0463

== ENCOUNTER 2018-04-02 11:52 | Emergency (ER) | payer BC ==
[2018-04-02 12:12] VITALS: BP 120/78
--- NOTE | 2018-04-02 12:32 | UC ---
Respiratory Complaint HPI - HPI Summary HPI Summary: Pt c/o worsening cough and nasal congestion over 7 days. Pt was a smoker. - History of Current Complaint Chief Complaint: UCRespiratory Stated Complaint: COUGH, CONGESTION Time Seen by Provider: 04/02/18 12:25 Hx Obtained From: Patient Onset/Duration: Sudden Onset, Lasting Days, Still Present, Worse Since - osnet Timing: Intermittent Episodes Severity Initially: Mild Severity Currently: Moderate Pain Intensity: 0 Character: Cough: Nonproductive Aggravating Factors: Deep Breaths, Recumbent Position Alleviating Factors: Nothing Associated Signs And Symptoms: Positive: Chills, URI, Nasal Congestion - Risk Factors Pulmonary Embolism Risk Factors: Negative Cardiac Risk Factors: Negative Pseudomonas Risk Factors: Negative Tuberculosis Risk Factors: Negative - Allergies/Home Medications Allergies/Adverse Reactions: Allergies Allergy/AdvReac Type Severity Reaction Status Date / Time No Known Allergies Allergy Verified 04/02/18 12:12 PMH/Surg Hx/FS Hx/Imm Hx Previously Healthy: Yes Other History Of: Negative For: HIV, Hepatitis B - chronic low back pain, plus per triage, Hepatitis C, Anticoagulant Therapy - Surgical History Surgical History: Yes Surgery Procedure, Year, and Place: Cholecystectomy, 2015, [place] - Family History Known Family History: Positive: Hypertension Negative: Cardiac Disease, Diabetes - Social History Occupation: Employed Full-time Lives: With Family Alcohol Use: Occasionally Substance Use Type: None Substance Use Comment - Amount & Last Used: occassionally Smoking Status (MU): Former Smoker Type: Cigarettes Length of Time of Smoking/Using Tobacco: <1 PPD x 4 Years Have You Smoked in the Last Year: No When Did the Patient Quit Smoking/Using Tobacco: 2007 - Immunization History Most Recent Influenza Vaccination: NOT IN 2017 Most Recent Tetanus Shot: UTD Most Recent Pneumonia Vaccination: N/A Review of Systems All Other Systems Reviewed And Are Negative: Yes Constitutional: Positive: Chills, Fatigue Skin: Positive: Negative Eyes: Positive: Negative ENT: Positive: Sinus Congestion Respiratory: Positive: Cough Cardiovascular: Positive: Negative Gastrointestinal: Positive: Negative Genitourinary: Positive: Negative Motor: Positive: Negative Neurovascular: Positive: Negative Musculoskeletal: Positive: Myalgia Neurological: Positive: Negative Psychological: Positive: Negative Is Patient Immunocompromised?: No Physical Exam Triage Information Reviewed: Yes Appearance: Well-Appearing Vital Signs: Initial Vital Signs Temp 98.4 F 04/02/18 12:10 Pulse 104 01/23/19 12:10 Resp 18 04/02/18 12:10 BP 120/78 04/02/18 12:10 Pulse Ox 96 04/02/18 12:10 Vital Signs Reviewed: Yes Eye Exam: Normal ENT: Positive: Nasal congestion Dental Exam: Normal Neck exam: Normal Respiratory Exam: Normal Cardiovascular Exam: Normal Musculoskeletal Exam: Normal Neurological Exam: Normal Psychological Exam: Normal Skin Exam: Normal UC Diagnostic Evaluation - Laboratory O2 Sat by Pulse Oximetry: 96 Respiratory Course/Dx - Differential Dx/Diagnosis Differential Diagnosis/HQI/PQRI: Bronchitis, Influenza Provider Diagnosis: Bronchitis Discharge - Sign-Out/Discharge Documenting (check all that apply): Patient Departure All imaging exams completed and their final reports reviewed: No Studies - Discharge Plan Condition: Stable Disposition: HOME Prescriptions: Azithromycin TAB* [Zithromax TAB (Z-[place]) 250 mg #6 tabs] 2 tab PO .TODAY, THEN 1 DAILY #1 [place] Benzonatate CAP* [Tessalon 100 MG CAP*] 200 mg PO Q8H PRN #30 cap PRN Reason: Cough Patient Education Materials: Acute Bronchitis (ED) Referrals: No Primary Care Phys,NOPCP [Primary Care Provider] - [facility] [Outside] - If Needed - Billing Disposition and Condition Condition: STABLE Disposition: Home
== END 2018-04-02 12:50 | disposition home or self-care (01) ==
LOC: UCCORT 11:52
DX: J40 Bronchitis, not specified as acute or chronic (principal); M79.10 Myalgia, unspecified site; R09.81 Nasal congestion; Z87.891 Personal history of nicotine dependence
CPT/HCPCS: 99212; G0463

== ENCOUNTER 2018-04-19 11:31 | Emergency (ER) | payer BC ==
[2018-04-19 12:20] VITALS: BP 106/72
--- NOTE | 2018-04-19 14:47 | UC ---
Shoulder Pain HPI - HPI Summary HPI Summary: Pt c/o right shoulder pain with internal rotation at AC joint. Pt denies injury or previous surgery. Pt states he has had intermittent pain X 2 weeks. - History of Current Complaint Chief Complaint: UCUpperExtremity Stated Complaint: BILATERAL ARM PAIN Time Seen by Provider: 04/19/18 12:16 Hx Obtained From: Patient Onset/Duration: Sudden Onset, Lasting Weeks, Still Present Timing: Weeks Severity Initially: Mild Severity Currently: Moderate Pain Intensity: 9 Character: Dull, Aching, Stiffness Aggravating Factor(s): Movement, Lifting, Internal Rotation Alleviating Factor(s): Rest Associated Signs And Symptoms: Positive: Negative Related History: Dominant Hand Right - Risk Factors Non-Orthopedic Risk Factor: Negative DVT Risk Factors: Negative Septic Arthritis Risk Factor: Negative - Allergies/Home Medications Allergies/Adverse Reactions: Allergies Allergy/AdvReac Type Severity Reaction Status Date / Time No Known Allergies Allergy Verified 04/02/18 12:12 Home Medications: Home Medications Ibuprofen TAB* [Motrin TAB* 800 MG] 1,200 mg PO ONCE PRN 04/19/18 [History Confirmed 04/19/18] PMH/Surg Hx/FS Hx/Imm Hx Previously Healthy: Yes Other History Of: Negative For: HIV, Hepatitis B - chronic low back pain, plus per triage, Hepatitis C, Anticoagulant Therapy - Surgical History Surgical History: Yes Surgery Procedure, Year, and Place: Cholecystectomy, 2015, [place] - Family History Known Family History: Positive: Hypertension Negative: Cardiac Disease, Diabetes - Social History Occupation: Employed Full-time Lives: With Family Alcohol Use: Occasionally Substance Use Type: None Substance Use Comment - Amount & Last Used: occassionally Smoking Status (MU): Former Smoker Type: Cigarettes Length of Time of Smoking/Using Tobacco: <1 PPD x 4 Years Have You Smoked in the Last Year: No When Did the Patient Quit Smoking/Using Tobacco: 2007 - Immunization History Most Recent Influenza Vaccination: NOT IN 2017 Most Recent Tetanus Shot: UTD Most Recent Pneumonia Vaccination: N/A Review of Systems All Other Systems Reviewed And Are Negative: Yes Constitutional: Positive: Negative Skin: Positive: Negative Eyes: Positive: Negative ENT: Positive: Negative Respiratory: Positive: Negative Cardiovascular: Positive: Negative Gastrointestinal: Positive: Negative Genitourinary: Positive: Negative Motor: Positive: Decreased ROM - righ tshoulder Neurovascular: Positive: Negative Musculoskeletal: Positive: Arthralgia - right shoulder, Decreased ROM - right shoulder, Myalgia - right shoulder Neurological: Positive: Negative Psychological: Positive: Negative Is Patient Immunocompromised?: No Physical Exam Triage Information Reviewed: Yes Appearance: Pain Distress - with ROM Vital Signs: Initial Vital Signs Temp 98 F 04/19/18 12:10 Pulse 85 04/19/18 12:10 Resp 18 04/19/18 12:10 BP 106/72 04/19/18 12:10 Pulse Ox 98 04/19/18 12:10 Vital Signs Reviewed: Yes Eye Exam: Normal ENT Exam: Normal ENT: Positive: Hearing grossly normal Dental Exam: Normal Neck exam: Normal Respiratory Exam: Normal Respiratory: Positive: No respiratory distress Musculoskeletal Exam: Other Musculoskeletal: Positive: ROM Limited @ - right shoulder with internal rotation and extension Neurological Exam: Normal Psychological Exam: Normal Skin Exam: Normal Diagnostics - Radiology No standard instances Radiology Interpretation Completed By: Radiologist - IMPRESSION: MILD OSTEOARTHRITIC CHANGE. Shoulder Course/Dx - Differential Dx/Diagnosis Differential Diagnosis/HQI/PQRI: Bursitis, Rotator Cuff Injury, Tendonitis Provider Diagnosis: Right shoulder pain Discharge - Sign-Out/Discharge Documenting (check all that apply): Patient Departure All imaging exams completed and their final reports reviewed: Yes - Discharge Plan Condition: Stable Disposition: HOME Prescriptions: Cyclobenzaprine TAB* [Flexeril 10 MG TAB*] 10 mg PO Q8H PRN #21 tab PRN Reason: Pain predniSONE TAB* [Deltasone 10 MG TAB*] 30 mg PO DAILY #12 tab Patient Education Materials: Shoulder Pain (ED) Referrals: No Primary Care Phys,NOPCP [Primary Care Provider] - Ferdinand Antunez MD [Medical Doctor] - - Billing Disposition and Condition Condition: STABLE Disposition: Home
== END 2018-04-19 15:13 | disposition home or self-care (01) ==
LOC: UCCORT 11:31
DX: M25.511 Pain in right shoulder (principal); Z87.891 Personal history of nicotine dependence
CPT/HCPCS: 99212; G0463

== ENCOUNTER 2018-06-27 16:09 | Emergency (ER) | payer SELFPAY ==
[2018-06-27 16:23] VITALS: BP 116/74
--- NOTE | 2018-06-27 16:40 | ED ---
Skin Complaint - HPI Summary HPI Summary: 38 yr old with rash, itching and burning in supra pubic area. Onset this morning. red base with blisters. The patient has a history of genital herpes. No fever or chills. The patient does not presently have any valtrex and no PMD> Request script for valtrex. - History of Current Complaint Chief Complaint: UCSkin Time Seen by Provider: 06/27/18 16:19 Stated Complaint: PERSONAL-SKIN Pain Intensity: 0 - Allergy/Home Medications Allergies/Adverse Reactions: Allergies Allergy/AdvReac Type Severity Reaction Status Date / Time No Known Allergies Allergy Verified 06/27/18 16:23 PMH/Surg Hx/FS Hx/Imm Hx Endocrine/Hematology History: Denies: Hx Anticoagulant Therapy, Hx Diabetes, Hx Thyroid Disease Cardiovascular History: Denies: Hx Congestive Heart Failure, Hx Deep Vein Thrombosis, Hx Hypertension , Hx Myocardial Infarction, Hx Pacemaker/ICD Respiratory History: Reports: Hx Asthma Denies: Hx Chronic Obstructive Pulmonary Disease (COPD), Hx Lung Cancer, Hx Pneumonia, Hx Pulmonary Embolism GI History: Denies: Hx Gall Bladder Disease, Hx Gastrointestinal Bleed, Hx Ulcer, Hx Urosepsis History: Denies: Hx Kidney Stones, Hx Renal Disease Musculoskeletal History: Denies: Hx Scoliosis Sensory History: Denies: Hx Hearing Aid Neurological History: Reports: Other Neuro Impairments/Disorders - HX OF CHRONIC BACK SPASMS AND BULGING DISC Denies: Hx Dementia, Hx Headaches, Hx Migraine, Hx Seizures, Hx Transient Ischemic Attacks (TIA) Psychiatric History: Reports: Hx Anxiety Denies: Hx Depression, Hx Panic Disorder, Hx Schizophrenia, Hx Bipolar Disorder - Surgical History Surgery Procedure, Year, and Place: Cholecystectomy, 2015, [place] Infectious Disease History: No Infectious Disease History: Denies: Hx Clostridium Difficile, Hx Hepatitis, Hx Human Immunodeficiency Virus (HIV), Hx of Known/Suspected MRSA, Hx Shingles, Hx Tuberculosis, Hx Known/ Suspected VRE, Hx Known/Suspected VRSA, History Other Infectious Disease, Traveled Outside the [place] in Last 30 Days - Family History Known Family History: Positive: Hypertension Negative: Cardiac Disease, Diabetes - Social History Alcohol Use: Occasionally Substance Use Type: Reports: None Substance Use Comment - Amount & Last Used: occassionally Smoking Status (MU): Former Smoker Type: Cigarettes Length of Time of Smoking/Using Tobacco: <1 PPD x 4 Years Have You Smoked in the Last Year: No Review of Systems Constitutional: Negative Positive: Rash All Other Systems Reviewed And Are Negative: Yes Physical Exam Triage Information Reviewed: Yes Vital Signs On Initial Exam: Initial Vitals Temp Pulse Resp BP Pulse Ox 98.3 F 93 16 116/74 97 06/27/18 16:20 06/27/18 16:20 06/27/18 16:20 06/27/18 16:20 06/27/18 16:20 Vital Signs Reviewed: Yes Appearance: Positive: Well-Appearing, No Pain Distress Skin: Positive: Other - red base with blisters suprapubic area consistent with herpes. Head/Face: Positive: Normal Head/Face Inspection Eyes: Positive: EOMI ENT: Positive: Normal ENT inspection Neck: Positive: Supple, Nontender Respiratory/Lung Sounds: Positive: Clear to Auscultation, Breath Sounds Present Cardiovascular: Positive: RRR. Negative: Murmur Abdomen Description: Positive: Nontender Male Genital Exam: Positive: Normal Genitalia, Other - red base with blisters supra pubic skin.. Negative: Testicular Tenderness (R), Testicular Tenderness ( L), Urethral Discharge Musculoskeletal: Positive: Strength/ROM Intact Neurological: Positive: Sensory/Motor Intact, Alert, Oriented to Person Place, Time, CN Intact II-III Psychiatric: Positive: Normal - [place] Coma Scale Best Eye Response: 4 - Spontaneous Best Motor Response: 6 - Obeys Commands Best Verbal Response: 5 - Oriented Coma Scale Total: 15 Diagnostics - Vital Signs Vital Signs Temp Pulse Resp BP Pulse Ox 06/27/18 16:20 98.3 F 93 16 116/74 97 - Laboratory Lab Statement: Any lab studies that have been ordered have been reviewed, and results considered in the medical decision making process. Course/Dx - Course Course Of Treatment: herpes genital outbreak. Rx with valtrex. - Diagnoses Provider Diagnoses: Herpes genitalis in men Discharge - Sign-Out/Discharge Documenting (check all that apply): Patient Departure All imaging exams completed and their final reports reviewed: No Studies - Discharge Plan Condition: Good Disposition: HOME Prescriptions: ValACYclovir (*) [Valtrex 1 GM(*)] 1 gm PO BID #21 tab Patient Education Materials: Genital Herpes Simplex (ED) Referrals: No Primary Care Phys,NOPCP [Primary Care Provider] - [facility] [place] [facility] [Outside] - Billing Disposition and Condition Condition: GOOD Disposition: Home
== END 2018-06-27 16:51 | disposition home or self-care (01) ==
LOC: UCCORT 16:09
DX: A60.00 Herpesviral infection of urogenital system, unspecified (principal); J45.909 Unspecified asthma, uncomplicated; F41.9 Anxiety disorder, unspecified; Z87.891 Personal history of nicotine dependence
CPT/HCPCS: 99212; G0463

== ENCOUNTER 2018-09-24 15:33 | Emergency (ER) | payer OTHER ==
--- OUTSIDE RECORDS SUMMARY | 2018-09-24 15:47 | XMS REPORT | Continuity of Care Document ---
:1980 External Reference #:[id number] Author Name Jaki Grey PA Address 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 Service Technician Unavailable Rasheeda Womack PA Primary Care Physician Unavailable Payers Date Identification Numbers Payment Provider Subscriber Policy Number: [id number] [employer] Abelardo Quesada PayID: [id number] [address] [place] [address] Problems Active Problems Provider Date Disorder of bursa of shoulder region Jaki Grey PA Onset: 08/22/2018 Social History Type Date Description Comments Sex Unknown Lives With Alone at his Dad's house Occupation Unemployed Hand Dominance Right-handed Tobacco Use Start: Unknown Never Smoked Cigarettes ETOH Use Rarely consumes alcohol Recreational Drug Use Marijuana Tobacco Use Start: Unknown Patient denies history of smoking Tobacco Use Start: Unknown smokes marijuana Smoking Status Reviewed: 08/19/18 smokes marijuana Allergies, Adverse Reactions, Alerts Description No Known Drug Allergies Medications Active Medications SIG Qnty Indications Ordering Provider Date Aleve when needed Unknown 220mg Capsules History Medications No Active Medications Unknown 08/22/2018 - 08/22/2018 Meloxicam Take One Tablet 30tabs Domo Warner MD 11/14/2011 - 15mg Tablets By Mouth Every 08/22/2018 Day Medications Administered in Office Medication SIG Qnty Indications Ordering Provider Date Depomedrol 40mg/1cc Jaki Grey PA 08/22/2018 (methylprednisolone acetate) Injection Immunizations CPT Code Status Date Vaccine Lot # [id number] Given 07/08/1996 DT Vaccine Younger Than 7 Yrs Vital Signs Date Vital Result Comment 08/22/2018 9:46am BP Systolic 112 mmHg BP Diastolic 76 mmHg Body Temperature 97.7 F Heart Rate 69 /min Height 68.5 inches 5'8.50" Weight 203.00 lb BMI (Body Mass Index) 30.4 kg/m2 BSA (Body Surface Area) 2.07 m2 [place] body weight in kilograms 71 kg O2 % BldC Oximetry 96 % 07/05/2011 9:33am Height 67.5 inches 5'7.50" Weight 204.00 lb 03/24/2007 2:47pm Height 67 inches 5'7" Weight 197.00 lb Results Test Date Facility Test Result H/L Range Note Laboratory test 12/09/2015 [facility] Troponin-I < 0.015 ng/mL N 1, 2 finding [address] [place] [address] [phone] Influenza A/B 12/09/2015 [facility] Influenza A Negative N (Negative) Antigen [address] [place] [address] [phone] Influenza B Antigen Negative N (Negative) 3 Aot Request 12/09/2015 [facility] Aot Request Already done N 4, 5 [address] [place], [place] [id number] [phone] Tests to be added: tropinin Instructions: add to [facility] Laboratory test finding 05/18/2014 [facility] Gallbladder See Note 6 [address] [place] [address] [phone] 1 CHEST PAIN 2 0.0 - 0.045 ng/mL: Normal 0.046 - 0.5 ng/mL: Suggestive 0.6 - 1.5 ng/mL: Consistent 3 Please Note: A POSITIVE result for influenza A and/or B antigen does not rule out a co-infection with other pathogens or identify any specific influenza A virus subtype. A NEGATIVE result for influenza A and/or B antigen does not preclude influenza virus infection and should not be the sole basis for treatment or other management decisions, since the antigen present in the specimen may be below the detection limit of the test. A NEGATIVE result is PRESUMPTIVE and it is recommended these results be confirmed by virus culture or an FDA-cleared influenza A and B molecular assay. Method: BD Veritor Chromatographic immunoassay 4 BAD HEADACHE,CP 5 Tests: tropinin Instructions: add to [facility] 6 OPERATION/PROCEDURE Laparoscopic cholecystectomy DIAGNOSIS: "GALLBLADDER, CHOLECYSTECTOMY": CHRONIC CHOLECYSTITIS, AND CHOLELITHIASIS. NO EVIDENCE OF DYSPLASIA NOR NEOPLASIA APPRECIATED. Yvon GROSS Received in formalin labeled, "GALLBLADDER" is a 9.5 x 2.5 x 1.5 cm. smith-pink , soft gallbladder with a smooth serosal surface. Upon opening it has very scant bile and 1.5 x 1.3 x 1.2 cm. perez yellow stone. The wall of the gallbladder measures up to 0.2 cm. in thickness. The mucosa is smith-pink and velvety without perez streaks. No purulent exudate nor tumor is seen. Damage Appraiser sections are submitted in one block. Yvon MICROSCOPIC Sections show gallbladder mucosa lined by columnar epithelium with focal synechia. The submucosa has a mild infiltrate of lymphocytes and plasma cells. The muscular wall is slightly fibrotic and hypertrophied. PRE OPERATIVE DIAGNOSIS Cholecystitis REVIEW CODE CODE: I Signed Electronically signed BABAR FOX MD 05/19/14 1246 Procedures Date Code Description Status 08/23/2018 54546 Radiology, Shoulder: Two Views (Sso) Completed 08/22/2018 71504 Radiology, Shoulder: Two Views (Sso) Completed 08/22/2018 26409 Asp./Injection major joint Completed 12/10/2015 71304 EKG Interpretation And Report Only Completed 12/09/2015 09350 Echocardiogram Complete Completed 05/18/2014 15531 Laparoscopy; cholecystectomy Completed 05/18/2014 86920 Anesthesia, Upper Abdomen Surgery Not Otherwise Spec Completed 07/05/2011 34537 Asp/Injection small joint/bursa (ie-fingers,toes) Completed 03/24/2007 Fracture-closed finger or thumb Completed 07/16/2001 Finance Charge Completed 06/11/200137625 Finance Charge Completed 04/23/2001 Finance Charge Completed 03/19/2001 49257 Finance Charge Completed Encounters Type Date Location Provider Dx Diagnosis Office Visit 08/22/2018 Orthopaedic Office Jaki Grey, M25.512 Pain in left 9:30a PA shoulder M25.511 Pain in right shoulder M75.51 Bursitis of right shoulder M75.52 Bursitis of left shoulder Office Visit 12/09/2015 8:45a Cardiology Office Anitra Carmichael, R07.9 Chest pain, unspecified R50.9 Fever, unspecified Office Visit 05/13/2014 11:38a Surgical Office Joselito, 575.0 Cholecystitis Acute MD Rickie Plan of Treatment Future Appointment(s):10/06/2018 10:00 am - Jaki Grey PA at [facility]/22/2018 - Jaki Grey, PAM25.512 Pain in left shoulderNew Therapy: Physical/Occupational HgmelfsO46.511 Pain in right fwowbszxK83.51 Bursitis of right shoulderNew Therapy:Physical/Occupational TherapyComments:I explained the diagnosis to the patient and have recommended a course of physical therapy, oral anti-inflammatories and a steroid injection into the right shoulder since that seems to be bothering himthe most. He does wish to proceed. Verbal consent was obtained for a right shoulder injection. Patient was injected today into the right shoulder with 80 mg Depo-Medrol, 4 cc 2% lidocaine, and 2 cc of 0.25% Marcaine after sterile prep with chlorhexidine. Patient tolerated the injection well and was dressed with a Band-Aid. Patient will start a course of therapy and return to the office for recheck in 6 weeks.M75.52 Bursitis of left shoulderAllNew Medication:No Active Medications -
[2018-09-24 15:49] VITALS: BP 113/77
--- NOTE | 2018-09-24 16:02 | UC ---
Complaint Male HPI - HPI Summary HPI Summary: pt is c/o a genital herpes outbreak since last pm. hx same. states valtrex daily works well for him. no fever or dysuria. - History of Current Complaint Chief Complaint: UCSkin Stated Complaint: SKIN CONCERN Time Seen by Provider: 09/24/18 15:56 Hx Obtained From: Patient Onset/Duration: Gradual Onset Timing: Constant Pain Intensity: 0 - Allergies/Home Medications Allergies/Adverse Reactions: Allergies Allergy/AdvReac Type Severity Reaction Status Date / Time No Known Allergies Allergy Verified 09/24/18 15:49 PMH/Surg Hx/FS Hx/Imm Hx - Additional Past Medical History Additional PMH: Genital herpes Other History Of: Negative For: HIV, Hepatitis B - chronic low back pain, plus per triage, Hepatitis C, Anticoagulant Therapy - Surgical History Surgical History: Yes Surgery Procedure, Year, and Place: Cholecystectomy, 2015, [place] - Family History Known Family History: Positive: Hypertension Negative: Cardiac Disease, Diabetes - Social History Alcohol Use: Occasionally Substance Use Type: None Substance Use Comment - Amount & Last Used: occassionally Smoking Status (MU): Former Smoker Type: Cigarettes Length of Time of Smoking/Using Tobacco: <1 PPD x 4 Years Have You Smoked in the Last Year: No When Did the Patient Quit Smoking/Using Tobacco: 2007 - Immunization History Most Recent Influenza Vaccination: NOT IN 2017 Most Recent Tetanus Shot: UTD Most Recent Pneumonia Vaccination: N/A Review of Systems All Other Systems Reviewed And Are Negative: No Constitutional: Negative: Fever, Chills Gastrointestinal: Negative: Abdominal Pain Genitourinary: Positive: Ulceration/Lesion. Negative: Dysuria, Hematuria, Frequency, Urgency Physical Exam Triage Information Reviewed: Yes Appearance: Well-Appearing Vital Signs: Initial Vital Signs Temp 99.0 F 09/24/18 15:47 Pulse 91 09/24/18 15:47 Resp 14 09/24/18 15:47 BP 113/77 09/24/18 15:47 Pulse Ox 97 09/24/18 15:47 Vital Signs Reviewed: Yes Eyes: Positive: Conjunctiva Clear Neck: Positive: Supple Respiratory: Positive: Lungs clear Cardiovascular: Positive: RRR Abdomen Description: Positive: Nontender Bowel Sounds: Positive: Present Male Genital Exam: Positive: Other - pt declined citing " I've had it several times" and has been here in the past for the same. Musculoskeletal: Positive: ROM Intact Neurological: Positive: Alert Psychological: Positive: Age Appropriate Behavior Skin Exam: Normal Complaint Male Course/Dx - Differential Dx/Diagnosis Differential Diagnosis/HQI/PQRI: Other - will tx for herges based on hx. Provider Diagnosis: Herpes genitalis Discharge - Sign-Out/Discharge Documenting (check all that apply): Patient Departure All imaging exams completed and their final reports reviewed: No Studies - Discharge Plan Condition: Stable Disposition: HOME Prescriptions: ValACYclovir (*) [Valtrex 1 GM(*)] 1 gm PO DAILY 5 Days #5 tab Patient Education Materials: Genital Herpes Simplex (ED) Referrals: Soheila Strickland MD [Primary Care Provider] - () Additional Instructions: FOLLOW UP SCHEDULED IN 2 WEEKS - Billing Disposition and Condition Condition: STABLE Disposition: Home
== END 2018-09-24 16:16 | disposition home or self-care (01) ==
LOC: UCCORT 15:33
DX: A60.00 Herpesviral infection of urogenital system, unspecified (principal); F17.210 Nicotine dependence, cigarettes, uncomplicated
CPT/HCPCS: 99212; G0463

== ENCOUNTER 2018-10-13 09:52 | Emergency (ER) | payer OTHER ==
[2018-10-13 11:32] VITALS: BP 121/71
[2018-10-13] MEDS ORDERED: Ibuprofen TAB* 400 MG PO ONE (11:58)
[2018-10-13] MEDS ORDERED: Dexamethasone IV* 4 MG/ML 1 ML (4 MG) PO ONE (11:58)
[2018-10-13] MEDS ORDERED: Acetaminophen TAB* 325 MG PO ONE (11:58)
--- NOTE | 2018-10-13 12:08 | ED ---
Back Pain - HPI Summary HPI Summary: 38 yr old with a history of prior low back problems, present here with pain in his low lumbar spine. Pain is worse with movement. He woke up with the pain. He states he did a lot of shoveling of dirt yesterday, and did not have any pain yesterday. Today he has pain upon waking up today. - History of Current Complaint Chief Complaint: UCBackPain Stated Complaint: LOWER BACK PAIN Time Seen by Provider: 10/13/18 11:53 Pain Intensity: 8 - Allergies/Home Medications Allergies/Adverse Reactions: Allergies Allergy/AdvReac Type Severity Reaction Status Date / Time No Known Allergies Allergy Verified 10/13/18 11:25 Home Medications: Home Medications ValACYclovir (*) [Valtrex 1 GM(*)] 1 gm PO DAILY PRN 10/13/18 [History Confirmed 10/13/18] PMH/Surg Hx/FS Hx/Imm Hx Endocrine/Hematology History: Denies: Hx Anticoagulant Therapy, Hx Diabetes, Hx Thyroid Disease Cardiovascular History: Denies: Hx Congestive Heart Failure, Hx Deep Vein Thrombosis, Hx Hypertension , Hx Myocardial Infarction, Hx Pacemaker/ICD Respiratory History: Reports: Hx Asthma Denies: Hx Chronic Obstructive Pulmonary Disease (COPD), Hx Lung Cancer, Hx Pneumonia, Hx Pulmonary Embolism GI History: Denies: Hx Gall Bladder Disease, Hx Gastrointestinal Bleed, Hx Ulcer, Hx Urosepsis History: Denies: Hx Kidney Stones, Hx Renal Disease Musculoskeletal History: Denies: Hx Scoliosis Sensory History: Denies: Hx Hearing Aid Neurological History: Reports: Other Neuro Impairments/Disorders - HX OF CHRONIC BACK SPASMS AND BULGING DISC Denies: Hx Dementia, Hx Headaches, Hx Migraine, Hx Seizures, Hx Transient Ischemic Attacks (TIA) Psychiatric History: Reports: Hx Anxiety Denies: Hx Depression, Hx Panic Disorder, Hx Schizophrenia, Hx Bipolar Disorder - Surgical History Surgery Procedure, Year, and Place: Cholecystectomy, 2015, [place] Infectious Disease History: No Infectious Disease History: Denies: Hx Clostridium Difficile, Hx Hepatitis, Hx Human Immunodeficiency Virus (HIV), Hx of Known/Suspected MRSA, Hx Shingles, Hx Tuberculosis, Hx Known/ Suspected VRE, Hx Known/Suspected VRSA, History Other Infectious Disease, Traveled Outside the [place] in Last 30 Days - Family History Known Family History: Positive: Hypertension Negative: Cardiac Disease, Diabetes - Social History Alcohol Use: Occasionally Substance Use Type: Reports: Marijuana Substance Use Comment - Amount & Last Used: september 2018 Smoking Status (MU): Former Smoker Type: Cigarettes Length of Time of Smoking/Using Tobacco: <1 PPD x 4 Years Have You Smoked in the Last Year: No Review of Systems Positive: Other - low back pain Negative: Weakness, Paresthesia, Numbness All Other Systems Reviewed And Are Negative: Yes Physical Exam Triage Information Reviewed: Yes Vital Signs On Initial Exam: Initial Vitals Temp Pulse Resp BP Pulse Ox 98.5 F 75 17 121/71 97 10/13/18 11:27 10/13/18 11:27 10/13/18 11:27 10/13/18 11:27 10/13/18 11:27 Vital Signs Reviewed: Yes Appearance: Positive: Well-Appearing, No Pain Distress Skin: Positive: Warm, Skin Color Reflects Adequate Perfusion Head/Face: Positive: Normal Head/Face Inspection Eyes: Positive: EOMI ENT: Positive: Normal ENT inspection Neck: Positive: Nontender Respiratory/Lung Sounds: Positive: Clear to Auscultation, Breath Sounds Present Cardiovascular: Positive: RRR. Negative: Murmur Abdomen Description: Positive: Nontender Musculoskeletal: Positive: Strength/ROM Intact, Other - no midline lumbar spine tenderness. No deformity. Neurological: Positive: Sensory/Motor Intact, Alert, Oriented to Person Place, Time, CN Intact II-III Psychiatric: Positive: Normal - [place] Coma Scale Best Eye Response: 4 - Spontaneous Best Motor Response: 6 - Obeys Commands Best Verbal Response: 5 - Oriented Coma Scale Total: 15 Diagnostics - Vital Signs Vital Signs Temp Pulse Resp BP Pulse Ox 10/13/18 11:27 98.5 F 75 17 121/71 97 - Laboratory Lab Statement: Any lab studies that have been ordered have been reviewed, and results considered in the medical decision making process. Back Pain Course/Dx - Course Course Of Treatment: 38 yr old with low back pain. Rx with medrol dose [place]. FU with PMD for further back work up, referrals. - Diagnoses Provider Diagnoses: Low back pain Discharge - Sign-Out/Discharge Documenting (check all that apply): Patient Departure All imaging exams completed and their final reports reviewed: Yes - Discharge Plan Condition: Good Disposition: HOME Prescriptions: methylPREDNISolone [Medrol] 4 mg PO .SEE [place] INSTRUCTION #1 tab.ds.pk Patient Education Materials: Acute Low Back Pain (ED) Referrals: Dill,Soheila L, MD [Primary Care Provider] - 2 Days - Billing Disposition and Condition Condition: GOOD Disposition: Home
== END 2018-10-13 12:46 | disposition home or self-care (01) ==
LOC: UCCORT 09:52
DX: M54.5 Low back pain (principal); Z87.891 Personal history of nicotine dependence
CPT/HCPCS: 72110; 99212; A9270-GY; G0463; J1100

== ENCOUNTER 2019-01-04 19:11 | Emergency (ER) | payer OTHER ==
[2019-01-04 19:22] VITALS: BP 115/76
--- NOTE | 2019-01-04 19:49 | UC ---
Ear Complaint HPI - HPI Summary HPI Summary: C/O pain up around the right ear and onto the scalp since this morning. No trauma. no URI symptoms. No change in hearing. No fevers. - History of Current Complaint Chief Complaint: UCEar Stated Complaint: RIGHT EAR PAIN/HEADACHE Hx Obtained From: Patient Onset/Duration: Sudden Onset, Lasting Days - 1, Still Present Severity Initially: Moderate Severity Currently: Moderate Pain Intensity: 5 Aggravating Factors: Other - touch, wearing a hat. Alleviating Factors: Nothing Associated Signs/Symptoms: Negative: Discharge, Hearing Loss, Foreign Body Sensation, Trauma to Ear, Swelling @, URI Symptoms - Allergies/Home Medications Allergies/Adverse Reactions: Allergies Allergy/AdvReac Type Severity Reaction Status Date / Time No Known Allergies Allergy Verified 01/04/19 19:22 PMH/Surg Hx/FS Hx/Imm Hx Previously Healthy: Yes Other History Of: Negative For: HIV, Hepatitis B - chronic low back pain, plus per triage, Hepatitis C, Anticoagulant Therapy - Surgical History Surgical History: Yes Surgery Procedure, Year, and Place: Cholecystectomy, 2015, [place] - Family History Known Family History: Positive: Cardiac Disease, Hypertension, Diabetes - Social History Occupation: Employed Full-time Lives: With Family Alcohol Use: Rare Substance Use Type: None Substance Use Comment - Amount & Last Used: september 2018 Smoking Status (MU): Former Smoker Type: Cigarettes Length of Time of Smoking/Using Tobacco: <1 PPD x 4 Years Have You Smoked in the Last Year: No When Did the Patient Quit Smoking/Using Tobacco: 2007 - Immunization History Most Recent Influenza Vaccination: NOT IN 2016 Most Recent Tetanus Shot: UTD Most Recent Pneumonia Vaccination: N/A Review of Systems All Other Systems Reviewed And Are Negative: Yes ENT: Positive: Ear Ache Neurological: Positive: Paresthesia - and sensitivity right scalp Physical Exam Triage Information Reviewed: Yes Appearance: Well-Appearing, No Pain Distress, Well-Nourished Vital Signs: Initial Vital Signs Temp 98.2 F 01/04/19 19:20 Pulse 100 01/04/19 19:20 Resp 16 01/04/19 19:20 BP 115/76 01/04/19 19:20 Pulse Ox 96 01/04/19 19:20 Vital Signs Reviewed: Yes Eyes: Positive: Conjunctiva Clear ENT: Positive: Pharynx normal, TMs normal Neck exam: Normal Respiratory Exam: Normal Cardiovascular Exam: Normal Musculoskeletal Exam: Normal Neurological: Positive: Other: - Hypersensitive to pinprick in the right parietal/ occipital scalp, not in dermatomal pattern. Psychological Exam: Normal Skin Exam: Normal Ear Complaint Course/Dx - Differential Dx/Diagnosis Differential Diagnosis/HQI/PQRI: Otitis Externa, Otitis Media, TMJ Syndrome, Trigeminal Nueralgia Provider Diagnosis: Neuritis Discharge ED - Sign-Out/Discharge Documenting (check all that apply): Patient Departure All imaging exams completed and their final reports reviewed: No Studies - Discharge Plan Condition: Stable Disposition: HOME Prescriptions: Gabapentin CAP(*) [Neurontin 300 CAP(*)] 300 mg PO TID PRN #90 cap PRN Reason: Nerve pain/ sensitivity predniSONE TAB* [Deltasone 20 MG TAB*] 60 mg PO DAILY #18 tab Patient Education Materials: Prednisone (By mouth) Referrals: Soheila Strickland MD [Primary Care Provider] - If Needed (If not improving.) Additional Instructions: GABAPENTIN: Gabapentin is an anti-seizure medication that is more often used for nerve pain. It helps to stabilize the nerve to stop the pain. Its primary side effect is sedation which will improve over time. Most people will start with only one capsule 1 to 2 hours before bed, but if your pain is more severe you may want to start with one capsule twice a day. If the pain is still an issue after another 1-2days the dose may be increased to a maximum of 1 capsule 3 times a day. Decrease the dose by one capsule a day if there is excessive sedation or it is not working. You can also decrease it to discontinue it if the pain is resolving. - Billing Disposition and Condition Condition: STABLE Disposition: Home
== END 2019-01-04 19:55 | disposition home or self-care (01) ==
LOC: UCCORT 19:11
DX: G58.8 Other specified mononeuropathies (principal); Z87.891 Personal history of nicotine dependence
CPT/HCPCS: 99212; G0463

== ENCOUNTER 2019-04-06 18:35 | Emergency (ER) | payer OTHER ==
[2019-04-06 19:17] VITALS: BP 120/69
--- NOTE | 2019-04-06 20:42 | UC ---
Throat Pain/Nasal Robert HPI - HPI Summary HPI Summary: 39 yo with sore throat for a week. He has not had fever or cough, but does have dysphagia and pain in both ears. He has a hx of reflux which he treats irregularly with omeprazole and symptoms are not completely controlled with this approach. - History of Current Complaint Chief Complaint: UCGeneralIllness Stated Complaint: SORE THROAT Time Seen by Provider: 04/06/19 20:41 Hx Obtained From: Patient Onset/Duration: Gradual Onset, Lasting Days Severity: Moderate Pain Intensity: 5 Cough: None Associated Signs & Symptoms: Positive: Dysphagia - Epiglottits Risk Factors Epiglottis Risk Factors: Negative - Allergies/Home Medications Allergies/Adverse Reactions: Allergies Allergy/AdvReac Type Severity Reaction Status Date / Time No Known Allergies Allergy Verified 04/06/19 19:17 Home Medications: Home Medications Omeprazole 20 mg PO DAILY PRN 04/06/19 [History Confirmed 04/06/19] PMH/Surg Hx/FS Hx/Imm Hx GI/ History: Gastroesophageal Reflux Other History Of: Negative For: HIV, Hepatitis B - chronic low back pain, plus per triage, Hepatitis C, Anticoagulant Therapy - Surgical History Surgical History: Yes Surgery Procedure, Year, and Place: Cholecystectomy, 2015, [place] - Family History Known Family History: Positive: Cardiac Disease, Hypertension, Diabetes - Social History Occupation: Employed Full-time Lives: With Family Alcohol Use: Rare Substance Use Type: None Substance Use Comment - Amount & Last Used: september 2018 Smoking Status (MU): Former Smoker Type: Cigarettes Length of Time of Smoking/Using Tobacco: <1 PPD x 4 Years Have You Smoked in the Last Year: No When Did the Patient Quit Smoking/Using Tobacco: 2007 - Immunization History Most Recent Influenza Vaccination: NOT IN 2017 Most Recent Tetanus Shot: UTD Most Recent Pneumonia Vaccination: N/A Review of Systems All Other Systems Reviewed And Are Negative: Yes Constitutional: Positive: Fatigue Skin: Positive: Negative Eyes: Positive: Negative ENT: Positive: Sore Throat, Ear Ache Respiratory: Negative: Shortness Of Breath, Cough Cardiovascular: Negative: Palpitations, Chest Pain Gastrointestinal: Positive: Other - uses omeprazole irregularly. Genitourinary: Positive: Negative Motor: Positive: Negative Neurovascular: Positive: Negative Musculoskeletal: Positive: Negative Neurological: Positive: Negative Psychological: Positive: Negative Is Patient Immunocompromised?: No Physical Exam Triage Information Reviewed: Yes Appearance: Well-Appearing, No Pain Distress Vital Signs: Initial Vital Signs Temp 97.3 F 04/06/19 19:12 Pulse 93 04/06/19 19:12 Resp 17 04/06/19 19:12 BP 120/69 04/06/19 19:12 Pulse Ox 97 04/06/19 19:12 Eyes: Positive: Conjunctiva Clear ENT: Positive: Pharyngeal erythema, Uvula midline - with erythema and mild swelling. Neck: Positive: Supple, Nontender, No Lymphadenopathy Respiratory: Positive: Lungs clear, Normal breath sounds Cardiovascular: Positive: RRR, No Murmur Musculoskeletal Exam: Normal Neurological Exam: Normal Psychological Exam: Normal Skin Exam: Normal Diagnostics - Laboratory Lab Results: rapid strep negative. Throat Pain/Nasal Course/Dx - Course Course Of Treatment: symptomatic treatment with gargling and analgesics. - Differential Dx/Diagnosis Differential Diagnosis/HQI/PQRI: Pharyngitis, Tonsillitis, URI Provider Diagnosis: Pharyngitis Discharge ED - Sign-Out/Discharge Documenting (check all that apply): Patient Departure All imaging exams completed and their final reports reviewed: No Studies - Discharge Plan Condition: Stable Disposition: HOME Patient Education Materials: Pharyngitis (ED) Referrals: Porfirio Whitney, JUAN CARLOS [Primary Care Provider] - Additional Instructions: Use of iburpofen 600mg up to 3 times per day can help with pain. Use warm water and salt gargles and warm drinks to relieve pain. - Billing Disposition and Condition Condition: STABLE Disposition: Home
== END 2019-04-06 20:57 | disposition home or self-care (01) ==
LOC: UCCORT 18:35
DX: J02.9 Acute pharyngitis, unspecified (principal); R53.83 Other fatigue; K21.9 Gastro-esophageal reflux disease without esophagitis; H92.03 Otalgia, bilateral; Z87.891 Personal history of nicotine dependence
CPT/HCPCS: 87651; 99211; G0463